=== PATIENT | female | born 1955 | race Caucasian/White ===

== ENCOUNTER 2016-09-01 15:12 | Emergency (ER) | payer MEDICARE, OTHER ==
--- NOTE | ~2016-09-01 | CR72 ---
[facility] A Service of [facility] & [facility] / [facility] RADIOLOGY TEXT RESULTS PATIENT: KENDELL SCHNEIDER LOCATION: [facility] : 53 UNIT #: [id number] AGE: [address]: Meredith Hartley MD SEX: F ORDER DR: [id number] [facility] [address] [place], [place] [address] [id number] MR#: [id number] #: [id number] NAME: KENDELL SCHNEIDER : 1955 SEX: F STUDY DATE/TIME: 09/01/2016 13:22 UNIT: [facility] ROOM: STUDY DESCRIPTION: CR Chest Single View Portable Attending Physician: Meredith Hartley M.D. Ordering Physician: Meredith Hartley M.D. Primary Care Physician: Dahiana Perez MEDICAL IMAGING REPORT This report is preliminary unless electronic signature is present EXAM Chest portable, 09/01/2016 1322 hours HISTORY 61-year-old woman with 4-day history of shortness of air, hypertension. COMPARISON 06/21/2016 FINDINGS Portable upright chest demonstrates normal heart size with mildly tortuous aorta, unchanged. There is mild pulmonary venous distension without definite interstitial edema. Vascular prominence has increased from 06/21/2016. No effusions. IMPRESSION There is mild pulmonary venous distension and vascular increase since 06/21/2016 without definite interstitial edema, pneumonia or effusion. Dictated by... Thu Neri M.D. THIS IS AN ELECTRONICALLY VERIFIED REPORT Thu Neri M.D. at 09/02/2016 9:26 AM CHARI/obed TD: 09/01/2016 20:44 JOB #: [id number] MEDICAL IMAGING REPORT COPY
--- NOTE | ~2016-09-01 | EKG ---
PATIENT: KENDELL SCHNEIDER UNIT #: [id number] Ventricular Rate: 66 BPM Atrial Rate: 66 BPM P-R Interval: 174 ms QRS Duration: 80 ms Q-T Interval: 448 ms QTC Calculation(Bezet): 469 ms P Booker: 71 degrees Calculated R Booker: 9 degrees Calculated T Booker: 76 degrees Diagnosis Line: Normal sinus rhythm Diagnosis Line: Normal ECG Diagnosis Line: When compared with ECG of 22-JUN-2016 05:36, Diagnosis Line: No significant change was found Diagnosis Line: Confirmed by ROLAND SHAW MD ([id number]) on 09/01/2016 Diagnosis Line: 7:33:21 PM INTERPRETING MD: COLIN CLINE
[2016-09-01 13:09] LABS: BASOPHIL# 0.1 X10e3 (0-0.3); BASOPHIL% 0.7 % (0-2.5); EOSINOPHIL# 0.3 X10e3 (0-0.7); EOSINOPHIL% 3.4 % (0.0-7.0); HEMATOCRIT 28.4 % (35.0-45.0); LYMPHOCYTE# 1.9 X10e3 (1.0-3.5); LYMPHOCYTE% 19.6 % (17.0-45.0); MEAN CELL VOLUME 86.2 FL (83-96); MEAN CORPUSCULAR HEMOGLOBIN 27.4 PG (28-34); MEAN CORPUSCULAR HGB CONC 31.8 g/dL (30-36); MEAN PLATELET VOLUME 9.5 FL (6.5-11.5); MONOCYTE# 0.7 X10e3 (0-1.0); MONOCYTE% 7.5 % (3.0-12.0); NEUTROPHIL# 6.6 X10e3 (1.5-7.1); NEUTROPHIL% 68.8 % (40-75); PLATELET COUNT 201 X10e3 (140-420); RED CELL DISTRIBUTION WIDTH 16.6 % (11.0-15.5); WHITE BLOOD COUNT 9.6 X10e3 (4.0-10.5)
[2016-09-01 13:10] LABS: DIFF IND NO
[2016-09-01 13:32] LABS: ALBUMIN SERUM 3.6 g/dL (3.5-5.0); ALKALINE PHOSPHATASE 89 U/L (32-92); ALT (SGPT) 17 U/L (10-40); AST (SGOT) 18 U/L (10-42); BILIRUBIN, DIRECT 0.1 mg/dL (0.0-0.2); BILIRUBIN,INDIRECT 0.3 mg/dL (0.0-0.9); BILIRUBIN,TOTAL 0.4 mg/dL (0.2-2.0); BLOOD UREA NITROGEN 13 mg/dL (9-23); BUN/CREATININE RATIO 21.66; CALCIUM SERUM 8.6 mg/dL (8.4-10.2); CARBON DIOXIDE 34 mmol/L (22-31); CHLORIDE 100 mmol/L (100-111); CREATININE SERUM 0.6 mg/dL (0.6-1.4); GLOM FILT RATE Estimated ABOVE60 mL/min (>60); GLUCOSE FASTING 85 mg/dL (70-110); POTASSIUM 3.8 mmol/L (3.5-5.1); PROTEIN TOTAL SERUM 6.7 g/dL (6.0-8.3); SODIUM 140 mmol/L (135-145)
[2016-09-01 13:36] LABS: POC - CKMB 1.1 ng/mL (0.0-7.9); POC - TROPONIN <0.05 ng/mL (<=0.05)
[~2016-09-01 15:12] MED LIST: ACETAMINOPHEN PO; ADVAIR 100-501 EAC1; ADVAIR 100-501 EAC1 IH; ADVAIR 2501 DISK W/D; ADVAIR 2501 DISK W/D PO; ADVAIR 500-501 EACH; ADVAIR 500-501 EACH IH; ADVAIR 500-501 EACH INH; ADVAIR 5001 DISK W/D PO; ALB/IPRATROPIUM/1 E1 INH; ALBUTEROL 0.5ML; ALBUTEROL 0.5ML INH; ALBUTEROL MININEB NEB; ALBUTEROL0.83 MG/ML; ALBUTEROL0.83 MG/ML INH; ALBUTEROL17 GM; ALBUTEROL17 GM INH; ALBUTEROL17 GM NEB; ALBUTEROL2.5 MG/0.5 INH; AMAZING BUTT CREAM EXT; AMAZING BUTT CREAM TOP; AMAZING BUTT CREAM TP; AMLODIPINE BESYL5 MG; AMLODIPINE BESYL5 MG PO; AMOXICILLIN875 MG PO; ANEXSIA 5/325 M1 TA1 PO; ANTI-DIARRHEAL2 M1; ANTI-DIARRHEAL2 M1 PO; ANTIDIARRHEAL2 MG PO; ANUSOL-HC CREAM30 G1; ASPIRIN81 M2 PO; ATIVAN PO; ATROVENT HFA12.9 G1 INH; ATROVENT15 ML INH; AUGMENTIN PO; AZITHROMYCIN250 MG PO; BACTROBAN22 GM TP; BENTYL10 MG PO; BENTYL20 MG; BENTYL20 MG PO; BENZONATATE; BENZONATATE PO; BUMEX2 MG PO; BUPROPION HCL150 M1; BUPROPION HCL150 M2 PO; CARBATROL200 MG PO; CARDURA2 MG PO; CEFDINIR300 MG PO; CEPHALEXIN500 M1 PO; CLARITIN10 M2 PO; CLOBETASOL 0.0560 GM TOP; COMBIVENT U/D3 M1 INH; CYMBALTA30 M1 PO; DALIRESP500 MCG PO; DICYCLOMINE HCL10 MG PO; DICYCLOMINE HCL20 MG PO; DOCUSATE SODIU100 MG PO; DOXYCYCLINE HY100 M1 PO; DUONEB 2.5-0.5 M3 ML NEB; FLEXERIL PO; FUROSEMIDE40 MG PO; GABAPENTIN300 M2 PO; GABAPENTIN600 MG PO; GABAPENTIN800 MG PO; GAS-X125 M1 PO; GUAIFENESIN LA600 M1 PO; GUAIFENESIN600 MG PO; HYCODAN60 ML 5MG/ PO; HYDRALAZINE HCL25 MG PO; HYDROCODON-ACE1 EAC1 PO; HYDROCODON-ACE1 EAC7 PO; HYDROCODON-ACE1 EACH PO; HYDROCODONE/APA1 T16 PO; IBUPROFEN PO; IBUPROFEN200 M1 PO; IBUPROFEN600 MG PO; IMITREX25 MG PO; IMODIUM A-D2 M1 PO; IMODIUM2 MG PO; KCL PO; KEFLEX PO; LASIX PO; LASIX20 MG PO; LEVAQUIN PO; LISINOPRIL10 MG PO; LISINOPRIL20 MG PO; LISINOPRIL5 MG PO; LORAZEPAM1 MG; LORAZEPAM1 MG PO; LORTAB 10-5001 EACH PO; LORTAB 5/500 TA1 TA1 PO; LORTAB 7.5-5001 TAB PO; MAGNESIUM400 MG PO; MEDROL DOSEPAK4 MG PO; MEDROL PO; MEDROL4 MG/DOSE-; METOPROLOL SUCC25 MG PO; MOBIC PO; MOTRIN400 MG PO; MUCINEX D ER T1 EACH; MYLANTA GAS80 MG PO; NEURONTIN PO; NEURONTIN600 MG PO; NEURONTIN800 MG PO; NEXIUM PO; NILSTAT; NILSTAT PO; NORCO 5/325 TAB1 TAB PO; NORVASC PO; NORVASC10 MG PO; O2; ORUDIS75 M1 PO; OXCARBAZEPINE150 M1 PO; OXYGEN; PHENERGAN DM1 ML PO; PHENERGAN PO; PHENERGAN W/CO120 ML PO; PHENERGAN25 M1 PO; PHENERGAN25 MG PO; PRAVACHOL PO; PRAVASTATIN SOD20 MG PO; PRAVASTATIN SOD40 MG; PRAVASTATIN SOD40 MG PO; PREDNISONE PO; PREDNISONE10 MG; PREDNISONE10 MG PO; PREDNISONE10 MG/DOSE PO; PREDNISONE50 MG PO; PRILOSEC PO; PRINIVIL20 M1; PROMETHAZINE HC25 MG; PROMETHAZINE HC25 MG PO; PROVENTIL INH; ROBITUSSIN A-C S5 ML PO; ROBITUSSIN A-C-S1 ML PO; ROBITUSSIN COU118 M1 PO; ROBITUSSIN-DM118 ML PO; SKELAXIN PO; SPIRIVA18 MCG INH; SYMBICORT INH; TEGRETOL; TEGRETOL PO; TEGRETOL XR400 MG PO; TEGRETOL-XR200 MG PO; TOPROL XL PO; TRAMADOL HCL50 M2 PO; TRIAMCINOLONE A15 G2 EXT; TRIAMCINOLONE AC1 GM; TRIAMTERENE-HC1 EAC1 PO; TUSSI-ORGANIDI118 M1 PO; TUSSIONEX PENN473 ML PO; TUSSIONEX PENN480 ML PO; VAGINAL CREAM1 EACH PV; VENTOLIN5 MG/ML INH; VIBRAMYCIN100 M1 PO; VICODIN PO; WALKER; WELLBUTRIN PO; WELLBUTRIN SR150 MG PO; WELLBUTRIN100 MG PO; Z-PACK; ZANTAC PO; ZITHROMAX PO; ZITHROMAX1 G/PKT PO; ZOLOFT100 MG PO; ZOLOFT50 MG PO; [UNRECOGNIZED DRUG - REMARK]; [UNRECOGNIZED DRUG - REMARK] OP
[2016-09-01 15:55] LABS: POC - CKMB 1.2 ng/mL (0.0-7.9); POC - TROPONIN <0.05 ng/mL (<=0.05)
[2016-11-30] MEDS ORDERED: NILSTAT (00:01)
[2016-11-30] MEDS ORDERED: HYDROCODON-ACE1 EAC9 PO (00:02)
[2016-11-30] MEDS ORDERED: GABAPENTIN800 MG (00:03)
[2016-11-30] MEDS ORDERED: MONTELUKAST SOD10 MG PO (00:04)
[2016-11-30] MEDS ORDERED: BUSPAR5 M1 PO (00:04)
[2017-01-22] MEDS ORDERED: ZOFRAN PO (16:05)
== END 2016-09-01 15:59 | disposition home or self-care (01) ==
LOC: CED 15:12
PROVIDERS: Emergency Medicine
DX: J44.1 Chronic obstructive pulmonary disease with (acute) exacerbation (principal); I11.0 Hypertensive heart disease with heart failure; I50.9 Heart failure, unspecified; K21.9 Gastro-esophageal reflux disease without esophagitis; F41.9 Anxiety disorder, unspecified; F32.9 Major depressive disorder, single episode, unspecified; Z90.49 Acquired absence of other specified parts of digestive tract; E78.5 Hyperlipidemia, unspecified
CPT/HCPCS: 36415; 71010; 80048; 80076; 82553; 83880; 84484; 85025; 93005; 94640; 96374; 99284; J2930

== ENCOUNTER 2016-11-30 13:48 | Inpatient (IN) | payer MEDICARE, OTHER ==
--- NOTE | ~2016-11-30 | BMI ---
[facility] Nutrition Therapy DATE: 12/01/16 Patient: KENDELL SCHNEIDER Physician: MELISSA Address: [address] [place] [address] Room/Bed: [address] [place] [address], Zip: [place] [address] Admit Date: 11/30/16 Date of : 53 Height: 5 4 Weight: 250 113.39 HIGH BMI NOTE: DX: 61 Y.O. FEMALE ADMITTED FOR PNUEMONIA. ANTHROPOMETRICS: 5'4", WT: 249# (113 KG), BMI 42 DIET: REGULAR DIET INTERVENTION: 1. REGULAR DIET RECOMMENDATIONS: 1. ONCE MEDICALLY FEASIBLE, ADVANCE DIET TO HEALTHY HEART DIET IN ORDER TO PROMOTE GRADUAL WEIGHT LOSS TOWARD A HEALTHY BMI (19.0-25.0) OR +/-10% IBW. RD WILL F/U PER PROTOCOL. Respectfully, TEMI MENDEZ, DIRECTOR OF PUBLICATIONS ALLI ADAMES MS, RD, LD Food and Nutritional Services [facility] cc: client file
--- NOTE | ~2016-11-30 | DS ---
Unit #: [id number] #: [id number] Patient: KENDELL SCHNEIDER [id number] [address] [address] [id number] I MR#: [id number] NAME: KENDELL SCHNEIDER ROOM: 230 Age: 61 Sex: F Admission Date: 11/30/2016 : 1955 Discharge Date: 12/03/2016 Attending Physician: Leonides Wilson M.D. Primary Care Physician: Dahiana Borges [employer]n [employer] DISCHARGE SUMMARY DISCHARGE DIAGNOSES 1. Fnpgk-ke-piaxbgd hypoxemic respiratory failure. 2. Chronic obstructive pulmonary disease exacerbation. 3. Community acquired pneumonia. 4. Hypertension. 5. Morbid obesity. 6. Chronic back pain. 7. Anemia. DISCHARGE MEDICATIONS 1. Albuterol sulfate inhaler or nebulizer q.4 h. p.r.n. 2. Advair 500/50 one inhalation b.i.d. 3. Tegretol 200 mg b.i.d. 4. Gabapentin 800 mg q.6 h. 5. Duloxetine 30 mg daily. 6. Nystatin Simep-t-Hdxibyb 5 cc q.i.d. p.r.n. 7. Phenergan 25 mg q.8 h. p.r.n. nausea. 8. BuSpar 5 mg p.o. b.i.d. 9. Norvasc 5 mg daily. 10. Metoprolol 25 mg daily. 11. Colace 100 mg daily. 12. Bumex 2 mg p.o. daily. 13. Pravastatin 40 mg at nighttime. 14. Hydralazine 25 mg t.i.d. 15. Singulair 10 mg daily. 16. [place]iboll 7.5/325 mg daily. 17. Nexium 40 mg daily. 18. Zithromax 500 mg daily for 5 days. 19. Prednisone 40 mg for 3 days, decreased by 10 mg every 3 days until off. 20. She is to continue on home oxygen. DIET No concentrated sweets diet. HOSPITAL COURSE The patient was admitted with exacerbation of chronic obstructive pulmonary disease and community acquired pneumonia. Chest x-ray was assessed today, subtle infiltrate in the right mid lung field. Her white blood cell count was 14,000. Hemoglobin was 8.4. Platelet count was normal. The patient was noted to be wheezing. She was in some respiratory distress. She was seen in the emergency room and we were called to admit the patient. She was admitted with the diagnosis of community acquired pneumonia, rmljc-lc-fsqapfw hypoxemic respiratory Unit #: [id number] #: [id number] Patient: KENDELL SCHNEIDER failure and exacerbation of chronic obstructive pulmonary disease. She was also noted to be anemic. She had some history of hyperglycemia in the past. She was admitted and placed on supplemental oxygen. She was treated with inhaled bronchodilators, IV Solu-Medrol, covered with antibiotics. As noted, chest x-ray showed subtle infiltrate in the right mid lung field. A chest CT scan was done, which confirmed ground glass infiltrate with interstitial change in a small area of ovoid airspace density in the inferior aspect of the right upper lobe. There were emphysematous changes bilaterally linear atelectatic scar at the right lung base. She was treated with Rocephin and Zithromax. She was treated with inhaled bronchodilators, IV Solu-Medrol with improvement with clearing of wheezing and improvement in baseline dyspnea. Her steroids have been weaned. She has received four doses of Rocephin and we will discharge her on oral Zithromax. She did have a procalcitonin drawn and it was less than 0.05. She was noted to be anemic. Hemoccult stool was negative. She should have followup with her family physician regarding her anemia. She will follow up in our office in two weeks for reevaluation of respiratory status. She will need a follow-up chest CT to ensure clearing of the right upper lobe ground glass infiltrate in four months. She is to continue to wear her home oxygen. Further recommendations pending this. Dictated by... Cameron Villagran/manuel TD: 12/04/2016 08:00 JOB #: [id number] DISCHARGE SUMMARY Page 1 of 1 X Leonides Wilson MD DISCHARGE SUMMARY
--- NOTE | ~2016-11-30 | HP ---
Unit #: [id number] #: [id number] Patient: KENDELL SCHNEIDER [id number] [address] [place], [place] [address] [id number] MR#: [id number] NAME: KENDELL SCHNEIDER ROOM: 230 Age: 61 Sex: F Admission Date: 11/30/2016 : 1955 Attending Physician: Leonides Wilson M.D. Primary Care Physician: Dahiana Perez HISTORY AND PHYSICAL Ms. Schneider is a 61-year-old white female who we have seen in the past with a history of COPD and chronic respiratory failure who presents with a three day history of increased shortness of breath, cough, productive or sputum and possibly some chills. She is noted to be wheezing. She did have some pain in chest with coughing. She had no documented fever and did have chills and had to use six blankets the other night. She is a reformed smoker x10 years. She does wear home oxygen three L. She denies any hemoptysis. PAST MEDICAL HISTORY Significant for COPD with chronic respiratory failure maintaining an O2 at 3 L, history of hypertension, anxiety, depression and gastroesophageal reflux, degenerative joint disease, chronic back pain, some history of CHF with history of catheterization revealing normal ejection fraction and no significant coronary artery disease. Also has a history of trigeminal neuralgia. PAST SURGICAL HISTORY Bilateral tubal ligation, right wrist surgery, umbilical hernia repair, right ear surgery, laparoscopic cholecystectomy. FAMILY HISTORY Positive for heart disease. SOCIAL HISTORY Reformed smoker x10 years. and lives with . Mother just . ALLERGIES None known. HOME MEDICATIONS Metoprolol, pravastatin, Nexium, hydralazine, Bumex, duloxetine, Norvasc, Tegretol, Phenergan, Colace, Flovent Diskus, albuterol, Ventolin, Advair 500/50, nystatin, [place] 7.5/325, Neurontin, BuSpar, Singulair. REVIEW OF SYSTEMS CONSTITUTIONAL: Has had some chills. No definite fevers. HEENT: No rhinorrhea, nasal congestion. PULMONARY: As noted. CARDIAC: No chest pain or palpitations. GI: No nausea, vomiting, diarrhea. : No hematuria or dysuria. ENDOCRINE: No polyuria or polydipsia. Unit #: [id number] #: [id number] Patient: KENDELL SCHNEIDER HEMATOLOGIC: No easy bruising or bleeding. SKIN: No rash. NEUROLOGIC: No new weakness or numbness. PSYCHIATRIC: Does have a history of anxiety or depression. PHYSICAL EXAMINATION VITAL SIGNS: Blood pressure is 135/74, pulse 61, respiratory rate 16 and afebrile. HEENT: Normocephalic and atraumatic. Pupils equal, round, reactive. Sclerae are nonicteric. Nasal passage is patent. Posterior pharynx clear, edentulous. Mallampati 3-4. NECK: Supple. Trachea midline. No cervical, supraclavicular lymphadenopathy. LUNGS: Lungs reveal mild expiratory wheeze bilaterally. Decreased breath sounds. CARDIAC: Regular rate and rhythm, could not appreciate murmur, rub, or gallop. ABDOMEN: Nontender. Bowel sounds present. No hepatosplenomegaly. EXTREMITIES: Without clubbing, cyanosis, or edema. Pulses 2+. NEUROLOGIC: Awake, alert and oriented x3. Cranial nerves are intact. Muscle strength symmetric bilaterally. Affect calm. SKIN: Warm and dry. DIAGNOSTIC STUDIES LABORATORY STUDIES: Reviewed. BMP is unremarkable, glucose 117. BNP is 65. Cardiac enzymes negative. White blood cell count 14,000, hematocrit 27.1, platelet count normal. Previous hemoglobin on 09/01/2016 was 28 and on 06/21/2016 was 33.3. CARDIOLOGY STUDIES: EKG shows normal sinus rhythm. IMPRESSION 1. Acute and chronic hypoxemic respiratory failure. 2. COPD exacerbation. 3. Possible community acquired pneumonia with vague right mid lung field infiltrate on chest x-ray. 4. History of CHF, compensated. 5. Hypertension. 6. Obesity. 7. Chronic back pain. PLANS Will treat with inhaled bronchodilators, IV Solu-Medrol, community acquired pneumonia with Rocephin and Zithromax. In order to prove that there is actually a pneumonia, will obtain chest CT scan without contrast and procalcitonin. Apparently also she has a history of sleep study done and it tells me that the sleep study was negative and will try to review those results. Will make further recommendations pending this. Will place on DVT prophylaxis and sliding scale insulin for mild hyperglycemia, which is suspected to worsen with steroid treatment. Dictated by Leonides Wilson M.D. LPM/jimmie Unit #: [id number] #: [id number] Patient: KENDELL SCHNEIDER TD: 12/01/2016 11:32 JOB #: [id number] CC: [facility], [facility], [facility]. HISTORY AND PHYSICAL Page 1 of 1 X Leonides Wilson MD X HISTORY AND PHYSICAL
--- NOTE | ~2016-11-30 | CR72 ---
[facility] A Service of [facility] & [facility] / [facility] RADIOLOGY TEXT RESULTS PATIENT: KENDELL SCHNEIDER LOCATION: A 230-01 : 53 UNIT #: [id number] AGE: [address]: Leonides Wilson MD SEX: F ORDER DR: [id number] [facility] [address] [place], [place] [address] [id number] MR#: [id number] #: [id number] NAME: KENDELL SCHNEIDER : 1955 SEX: F STUDY DATE/TIME: 11/30/2016 15:03 UNIT: [facility] ROOM: 230 STUDY DESCRIPTION: CR Chest Single View Portable Attending Physician: Leonides Wilson M.D. Ordering Physician: Ronald Smith M.D. Primary Care Physician: Dahiana Perez MEDICAL IMAGING REPORT This report is preliminary unless electronic signature is present EXAM Portable chest HISTORY Shortness of air and chest pain for 3 days. COPD. FINDINGS Patchy subsegmental infiltrate in the inferior right upper lobe and minimal fluid in the minor fissure are new compared to 09/01/16. Although nonspecific, this could be due to subsegmental pneumonia. Remainder of the lungs are clear. Cardiac and mediastinal contours are normal. Dictated by... Skyler Dumas M.D. THIS IS AN ELECTRONICALLY VERIFIED REPORT Skyler Dumas M.D. at 12/01/2016 3:01 PM DFL/psc TD: 12/01/2016 00:06 JOB #: [id number] MEDICAL IMAGING REPORT Page 1 of 1 COPY
--- NOTE | ~2016-11-30 | CT57 ---
[facility] A Service of [facility] & [facility] RADIOLOGY TEXT RESULTS PATIENT: KENDELL SCHNEIDER LOCATION: C2A 230-01 : 53 UNIT #: [id number] AGE: [address]: Leonides Wilson MD SEX: F ORDER DR: [id number] [facility] [address] [place], [place] [address] [id number] MR#: [id number] Acc #: [id number] NAME: KENDELL SCHNEIDER : 1955 SEX: F STUDY DATE/TIME: 12/01/2016 11:53 UNIT: C2A ROOM: 230 STUDY DESCRIPTION: CT Chest Wo Cont Attending Physician: Leonides Wilson M.D. Ordering Physician: Eulalio Wilson Primary Care Physician: Dahiana Perez MEDICAL IMAGING REPORT This report is preliminary unless electronic signature is present EXAM CT chest without contrast, 12/01/2016 11:53 hours HISTORY 61-year-old with shortness of air and cough since 11/27/2016, abnormal chest x-ray 11/30/2016 with probable right pneumonia. For further evaluation. COMPARISON Chest x-ray 11/30/2016, 09/01/[address] 11/26/2014. TECHNIQUE Helical noncontrasted images were obtained from the thoracic inlet through the adrenal glands. Sagittal and coronal reconstructions were performed. Total exam DLP 719 mGy-cm. This CT exam was performed with one or more of the following radiation dose reduction techniques: automatic exposure control, adjustment of mA and/or kV according to patient size, and iterative reconstruction. FINDINGS Images through the thoracic inlet demonstrate no thyroid lesion or adenopathy. Images through the chest demonstrate no pathologic mediastinal, hilar or axillary adenopathy. There are stable benign calcified left hilar nodes. The aorta, cardiac chambers, pericardium and esophagus are normal. The lungs demonstrate underlying emphysema both paraseptal and centrilobular. There is vague density in the right upper lobe with both airspace and interstitial change new from CT chest 11/26/2014 likely corresponding to the density seen on chest film yesterday. This is nonspecific. Acute infection is favored. There is linear to band-like STS. [facility] A Service of [facility] & [facility] RADIOLOGY TEXT RESULTS PATIENT: KENDELL SCHNEIDER LOCATION: C2A 230-01 : 53 UNIT #: [id number] AGE: [address]: Leonides Wilson MD SEX: F ORDER DR: density in the right lower lobe, likely atelectasis or scar, not well seen on portable chest yesterday but new from CT chest 11/26/2014. There is some linear density in the left lower lobe but the left lung is essentially clear of acute densities. There is no obstructing lesion. No pleural fluid. Limited views through the upper abdomen are negative. IMPRESSION 1. There is underlying emphysematous change with new ground-glass, interstitial change with a small area of ovoid airspace density in the inferior aspect of the right upper lobe likely corresponding to the new density seen on chest film yesterday. Findings most likely represent pneumonia. These are not seen on CT chest 11/26/2014. There is no associated adenopathy or pleural fluid. Followup chest radiographs to complete resolution is recommended. If this fails to rapidly respond to antibiotic therapy, suggest followup short interval chest CT. 2. Minimal linear atelectasis or scar at the right lung base. 3. Limited views through the upper abdomen are negative. Dictated by... Thu Neri M.D. THIS IS AN ELECTRONICALLY VERIFIED REPORT Thu Neri M.D. at 12/02/2016 2:31 PM Ophelia TD: 12/01/2016 13:21 JOB #: [id number] MEDICAL IMAGING REPORT Page 1 of 1 COPY
--- NOTE | ~2016-11-30 | EKG ---
PATIENT: KENDELL SCHNEIDER UNIT #: [id number] Ventricular Rate: 76 BPM Atrial Rate: 76 BPM P-R Interval: 166 ms QRS Duration: 86 ms Q-T Interval: 382 ms QTC Calculation(Bezet): 429 ms P Beaver: 49 degrees Calculated R Beaver: -18 degrees Calculated T Beaver: 73 degrees Diagnosis Line: Normal sinus rhythm Diagnosis Line: Normal ECG Diagnosis Line: When compared with ECG of 01-SEP-2016 12:47, Diagnosis Line: No significant change was found Diagnosis Line: Confirmed by SHANON MARIE MD ([id number]) on Diagnosis Line: 11/30/2016 10:21:37 PM INTERPRETING MD: IRINA
[~2016-11-30 13:48] MED LIST changes: +BUSPAR5 M1 PO; +GABAPENTIN800 MG; +HYDROCODON-ACE1 EAC9 PO; +MONTELUKAST SOD10 MG PO
[2016-11-30 14:36] LABS: POC - CKMB <1.0 ng/mL (0.0-7.9); POC - TROPONIN <0.05 ng/mL (<=0.05)
[2016-11-30 14:59] LABS: BASOPHIL# 0.1 X10e3 (0-0.3); BASOPHIL% 0.5 % (0-2.5); EOSINOPHIL# 0.4 X10e3 (0-0.7); EOSINOPHIL% 2.8 % (0.0-7.0); HEMATOCRIT 27.1 % (35.0-45.0); HEMOGLOBIN 8.4 gm/dL (12.0-16.0); LYMPHOCYTE# 1.4 X10e3 (1.0-3.5); LYMPHOCYTE% 10.1 % (17.0-45.0); MEAN CELL VOLUME 84.3 FL (83-96); MEAN CORPUSCULAR HGB CONC 30.9 g/dL (30-36); MEAN PLATELET VOLUME 9.9 FL (6.5-11.5); MONOCYTE# 1.1 X10e3 (0-1.0); MONOCYTE% 7.6 % (3.0-12.0); PLATELET COUNT 236 X10e3 (140-420); RED BLOOD COUNT 3.22 X10e (3.90-5.30); RED CELL DISTRIBUTION WIDTH 16.7 % (11.0-15.5)
[2016-11-30 15:04] LABS: DIFF IND NO
[2016-11-30 15:19] LABS: ALBUMIN SERUM 3.7 g/dL (3.5-5.0); BILIRUBIN, DIRECT 0.1 mg/dL (0.0-0.2); BILIRUBIN,INDIRECT 0.5 mg/dL (0.0-0.9); BILIRUBIN,TOTAL 0.6 mg/dL (0.2-2.0); BUN/CREATININE RATIO 11.42; CALCIUM SERUM 8.5 mg/dL (8.4-10.2); CREATININE SERUM 0.7 mg/dL (0.6-1.4); GLOM FILT RATE Estimated 92.9 mL/min (>60); POTASSIUM 4.1 mmol/L (3.5-5.1)
[2016-11-30] MEDS ORDERED: METOPROLOL SUCC25 MG PO (23:38)
[2016-11-30] MEDS ORDERED: NEXIUM PO (23:39)
[2016-11-30] MEDS ORDERED: PRAVASTATIN SOD40 MG PO (23:39)
[2016-11-30] MEDS ORDERED: HYDRALAZINE HCL25 MG PO (23:40)
[2016-11-30] MEDS ORDERED: BUMEX2 MG PO (23:41)
[2016-11-30] MEDS ORDERED: DULOXETINE HCL30 MG PO (23:45)
[2016-11-30] MEDS ORDERED: NORVASC PO (23:46)
[2016-11-30] MEDS ORDERED: TEGRETOL PO (23:48)
[2016-11-30] MEDS ORDERED: PHENERGAN PO (23:49)
[2016-11-30] MEDS ORDERED: DOCUSATE SODIU100 MG PO (23:50)
[2016-11-30] MEDS ORDERED: FLOVENT DISKUS50 MCG (23:53)
[2016-11-30] MEDS ORDERED: ALBUTEROL2.5 MG/3 M (23:55)
[2016-11-30] MEDS ORDERED: ALBUTEROL17 GM INH (23:56)
[2016-11-30] MEDS ORDERED: ADVAIR 500-501 EACH INH (23:59)
[2016-12-02 06:22] LABS: HEMATOCRIT 25.5 % (35.0-45.0); HEMOGLOBIN 7.9 gm/dL (12.0-16.0); MEAN CELL VOLUME 83.8 FL (83-96); MEAN CORPUSCULAR HEMOGLOBIN 25.8 PG (28-34); MEAN CORPUSCULAR HGB CONC 30.8 g/dL (30-36); MEAN PLATELET VOLUME 9.7 FL (6.5-11.5); RED BLOOD COUNT 3.05 X10e (3.90-5.30); RED CELL DISTRIBUTION WIDTH 16.9 % (11.0-15.5); WHITE BLOOD COUNT 17.8 X10e3 (4.0-10.5)
[2016-12-02 06:50] LABS: BUN/CREATININE RATIO 27.14; CALCIUM SERUM 8.8 mg/dL (8.4-10.2); CREATININE SERUM 0.7 mg/dL (0.6-1.4); GLOM FILT RATE Estimated 92.9 mL/min (>60); POTASSIUM 3.9 mmol/L (3.5-5.1)
[2016-12-03] MEDS ORDERED: PROAIR HFA8.5 GM INH (14:59)
[2016-12-03] MEDS ORDERED: ZITHROMAX500 MG PO (15:04)
[2016-12-03] MEDS ORDERED: PREDNISONE10 M1 (15:05)
[2017-01-22] MEDS ORDERED: ZOFRAN PO (16:05)
== END 2016-12-03 15:26 | disposition home or self-care (01) | DRG 189 ==
LOC: CED 13:48 → C2A 16:56 → CEDOF 16:56 → C2A 17:43 → CED 17:43 → C2A 18:42 → CEDOF 18:42 → C2A 12-03 15:26
PROVIDERS: Emergency Medicine; Internal Medicine
DX: J96.21 Acute and chronic respiratory failure with hypoxia (principal); J18.9 Pneumonia, unspecified organism; J44.0 Chronic obstructive pulmonary disease with (acute) lower respiratory infection; E66.01 Morbid (severe) obesity due to excess calories; J44.1 Chronic obstructive pulmonary disease with (acute) exacerbation; I10 Essential (primary) hypertension; M54.9 Dorsalgia, unspecified; G89.29 Other chronic pain; D64.9 Anemia, unspecified; Z87.891 Personal history of nicotine dependence
CPT/HCPCS: 36415; 71010; 71250; 80048; 80076; 82274; 82308; 82553; 82947; 83880; 84484; 85025; 85027; 87040; 93005; 94640; 94664; 94760; 96374; 99285; J0456; J0696; J1650; J1815; J2920; J2930

== ENCOUNTER 2016-12-16 16:01 | Observation (INO) | payer MEDICARE, OTHER ==
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
--- NOTE | ~2016-12-16 | DS ---
Unit #: [id number] #: [id number] Patient: KENDELL SCHNEIDER [id number] [address] [place], [place] [address] [id number] I MR#: [id number] NAME: KENDELL SCHNEIDER ROOM: 567 Age: 61 Sex: F Admission Date: 12/16/2016 : 1955 Discharge Date: 12/18/2016 Attending Physician: Leonides Wilson M.D. Primary Care Physician: Dahiana Borges Aprn Chris DISCHARGE SUMMARY DISCHARGE DIAGNOSES 1. Right sided chest pain, likely musculoskeletal. 2. Chronic obstructive pulmonary disease with chronic respiratory failure, maintained on home O2. 3. Recent community-acquired pneumonia right mid lung field, resolved. 4. Hypertension. 5. Morbid obesity. 6. Possible obstructive sleep apnea. 7. Hemoccult negative anemia: Outpatient workup recommended through [facility]. HOSPITAL COURSE 61-year-old white female recently discharged from the hospital on December 03 after treatment for community-acquired pneumonia. She presented with right sided, somewhat pleuritic in chest pain, also with point tenderness to the anterior ribcage in that area. She was admitted to rule out ischemic heart disease. A chest x-ray showed resolution of the infiltrate. CT scan PE protocol showed no evidence of pulmonary embolus or/and resolution of her pneumonia. She was seen by Dr. Strickland. Cardiac enzymes were negative. Her pain resolved. It was not felt this represented cardiac pain. She will be discharged home to follow up with Dr. Martin Nino on February 05 at 3:30 from a cardiac point of view. She will follow up in my office per her regular visit. She does not require a repeat CT scan as her right sided community-acquired pneumonia has resolved. She was noted to be slightly hypotensive and Dr. Strickland did adjust her home medicines for that. She was also given a prescription for potassium. DISCHARGE MEDICATIONS Her discharge medicines will include: 1. Albuterol inhaler or nebulizer every four hours as needed. 2. Advair 500/50, one inhalation b.i.d. 3. Advair two puffs q.i.d. 4. Tegretol 200 mg b.i.d. 5. Gabapentin as per at home q.i.d. 6. Trileptal 200 mg b.i.d. as at home. 7. Duloxetine 30 mg daily. 8. Loperamide as needed for diarrhea. 9. Phenergan 25 q.8 hours as needed for nausea. 10. Bentyl 20 mg before meals. 11. BuSpar 5 b.i.d. 12. Norvasc has been discontinued. 13. Metoprolol has been changed to 25 mg q.12 hours as opposed to 25 mg daily. Unit #: [id number] #: [id number] Patient: KENDELL SCHNEIDER 14. Colace 100 mg daily. 15. Imitrex 25 mg daily as needed for headaches. 16. Bumex 1 mg daily. 17. Pravastatin 40 mg q. h.s. 18. Hydralazine 25 mg b.i.d., that is decreased from three times a day. 19. Singulair 10 mg daily. 20. Aspirin 81 mg daily. 21. Hydrocodone 7.5/325, one q.i.d. as needed. 22. Nexium 40 mg p.o. daily. 23. Potassium 40 mEq daily. 24. Home O2 at prescribed level. Outpatient follow up for COPD. Pneumonia has resolved. Do not need followup CT. Would also re-evaluate obstructive sleep apnea. Dictated by... Leonides Wilson M.D. RAYMOND/rupert TD: 12/19/2016 08:24 JOB #: [id number] DISCHARGE SUMMARY Page 1 of 1 X Leonides Wilson MD X DISCHARGE SUMMARY
--- NOTE | ~2016-12-16 | CR132 ---
[facility] A Service of [facility] & [facility] RADIOLOGY TEXT RESULTS PATIENT: KENDELL SCHNEIDER LOCATION: [facility] 567-01 : [birth year] UNIT #: [id number] AGE: [address]: Leonides Wilson MD SEX: F ORDER DR: [id number] [facility] [address]. [place], [place] [address] [id number] I MR#: [id number] Acc #: [id number] NAME: KENDELL SCHNEIDER : 1955 SEX: F STUDY DATE/TIME: 12/16/2016 21:11 UNIT: [facility] ROOM: [facility] STUDY DESCRIPTION: CR Forearm 2 View Lt Attending Physician: Leonides Wilson M.D. Ordering Physician: Ramirez Campbell D.O. Primary Care Physician: Dahiana Perez MEDICAL IMAGING REPORT This report is preliminary unless electronic signature is present EXAM Two views of the left forearm. DATE 12/16/2016 HISTORY Left hand and forearm pain and swelling since 12/16/2016. No known injury. COMPARISON None. FINDINGS No fracture. No joint dislocation. No significant osteoarthritic changes are appreciated. No retained radiopaque foreign body is seen in the soft tissues. IMPRESSION 1. Normal 2 views of the left forearm. Dictated by... Ilene Montgomery M.D. THIS IS AN ELECTRONICALLY VERIFIED REPORT Ilene Montgomery M.D. at 12/17/2016 10:40 AM [facility]/obed TD: 12/17/2016 04:25 JOB #: [id number] MEDICAL IMAGING REPORT Page 1 of 1 COPY
--- NOTE | ~2016-12-16 | HP ---
Unit #: [id number] #: [id number] Patient: KENDELL SCHNEIDER [id number] [address] [place], [place] [address] [id number] I MR#: [id number] NAME: KENDELL SCHNEIDER ROOM: 567 Age: 61 Sex: F Admission Date: 12/16/2016 : 1955 Attending Physician: Leonides Wilson M.D. HISTORY AND PHYSICAL HISTORY OF PRESENT ILLNESS Ms. Schneider is a 61-year-old white female recently discharged from the hospital on December 03, 2016, after admission for acute on chronic hypoxemic respiratory failure and COPD exacerbation with right upper lobe community-acquired pneumonia. She was discharged on her routine inhalers, Zithromax, and a tapering dose of prednisone. Yesterday, she awakened with right-sided chest pain. She took a pain pill and it seemed to improve. She came to the emergency room, and we were called to admit the patient. CT scan of the chest was done which showed no evidence of pulmonary embolus. Bilateral emphysematous changes, and it also showed clearing of the right-sided infiltrate that had been present last admission. Cardiac enzymes have been negative. PAST MEDICAL HISTORY 1. Chronic obstructive pulmonary disease with chronic respiratory failure, maintained on home O2 at three liters. 2. Hypertension. 3. Anxiety and depression. 4. Gastroesophageal reflux. 5. Degenerative joint disease. 6. Chronic back pain. 7. Some history of CHF with history of catheterization revealing normal ejection fraction and no coronary artery disease apparently. 8. History of trigeminal neuralgia. PAST SURGICAL HISTORY 1. Bilateral Tubal ligation. 2. Right wrist surgery. 3. Umbilical hernia repair. 4. Right ear surgery. 5. Laparoscopic cholecystectomy. FAMILY HISTORY Heart disease. ALLERGIES None known. HOME MEDICATIONS 1. Metoprolol 25 mg daily. 2. Pravastatin 40 at bedtime. 3. Nexium 40 daily. 4. Hydralazine 25 t.i.d. 5. Bumex 2 daily. Unit #: [id number] #: [id number] Patient: KENDELL SCHNEIDER 6. Duloxetine 30 mg daily. 7. Norvasc 5 mg daily. 8. Tegretol 200 mg twice daily. 9. Phenergan 25 mg q.8. 10. Colace 100 mg b.i.d. 11. Albuterol q.4 hours as needed. 12. Advair 500/50 at 1 inhalation twice daily. 13. [place] 7.5/325 every 4 hours as needed. 14. Gabapentin 4 times daily. 15. BuSpar 5 mg twice daily. 16. Singulair 10 mg at bedtime. 17. Bentyl. 18. Trileptal 200 mg twice daily. 19. Imitrex 25 daily. 20. Loperamide 2 mg as needed. 21. Atrovent. REVIEW OF SYSTEMS CONSTITUTIONAL: No fevers or chills. HEENT: No rhinorrhea or nasal congestion. PULMONARY: As noted. CARDIAC: As noted. GENITOURINARY: No hematuria or dysuria. ENDOCRINE: No polyuria or polydipsia. HEMATOLOGIC: No easy bruising or bleeding. SKIN: No rash. GASTROINTESTINAL: Negative. PHYSICAL EXAMINATION GENERAL: A white female, obese, in no distress. VITAL SIGNS: Blood pressure is 128/76, pulse 63, respiratory rate 19, and afebrile. HEENT: Normocephalic and atraumatic. Pupils equal, round, AND reactive. Sclerae are nonicteric. Nasal passages patent. Posterior pharynx crowded. NECK: Supple. Trachea midline. No cervical or supraclavicular lymphadenopathy. LUNGS: Fairly clear with diminished breath sounds. CARDIAC: Regular rate and rhythm. I could not appreciate murmur, rub, or gallop. ABDOMEN: Nontender. Bowel sounds present. No hepatosplenomegaly. EXTREMITIES: Without clubbing or cyanosis. There is 1+ lower extremity edema. SKIN: Warm and dry. PSYCHIATRIC: Affect calm. DIAGNOSTIC STUDIES LABORATORY: Reviewed. BMP unremarkable. Glucose 145. Cardiac enzymes negative. White count 7400, hematocrit 28.4, and platelet count normal. IMPRESSION 1. Right side chest pain, rule out ischemic heart disease. No evidence of pulmonary emboli or pneumonia. 2. Chronic obstructive pulmonary disease with chronic respiratory failure maintained on home oxygen. 3. Hypertension. 4. Morbid obesity. 5. Possible obstructive sleep apnea. 6. Hemoccult-negative anemia in the past. Can plan outpatient workup. Unit #: [id number] #: [id number] Patient: KENDELL SCHNEIDER PLAN Rule out [place]. Follow up with [facility]. We are not the primary care physician of this patient. Will continue current pulmonary medicines. Will need to review old records to see if she has been evaluated for sleep apnea. Dictated by Leonides Wilson M.D. RAYMOND/robert TD: 12/17/2016 20:46 JOB #: [id number] HISTORY AND PHYSICAL Page 1 of 1 X Leonides Wilson MD X HISTORY AND PHYSICAL
--- NOTE | ~2016-12-16 | EKG ---
PATIENT: KENDELL SCHNEIDER UNIT #: [id number] Ventricular Rate: 71 BPM Atrial Rate: 71 BPM P-R Interval: 152 ms QRS Duration: 76 ms Q-T Interval: 408 ms QTC Calculation(Bezet): 443 ms P [place]: 25 degrees Calculated R [place]: -7 degrees Calculated T [place]: 32 degrees Diagnosis Line: Sinus rhythm Diagnosis Line: Nonspecific ST abnormality Diagnosis Line: Abnormal ECG Diagnosis Line: When compared with ECG of 30-NOV-2016 14:48, Diagnosis Line: ST-T abnormalities worse Diagnosis Line: Confirmed by SHANON MARIE MD ([id number]) on Diagnosis Line: 12/16/2016 10:54:46 PM INTERPRETING MD: IRINA
--- NOTE | ~2016-12-16 | EKG ---
PATIENT: KENDELL SCHNEIDER UNIT #: [id number] Ventricular Rate: 50 BPM Atrial Rate: 50 BPM P-R Interval: 186 ms QRS Duration: 96 ms Q-T Interval: 506 ms QTC Calculation(Bezet): 461 ms P [place]: 59 degrees Calculated R [place]: -6 degrees Calculated T [place]: 67 degrees Diagnosis Line: Sinus bradycardia Diagnosis Line: Nonspecific T wave abnormality Diagnosis Line: Abnormal ECG Diagnosis Line: When compared with ECG of 16-DEC-2016 17:08, Diagnosis Line: Nonspecific T wave abnormality, worse in Diagnosis Line: Anterolateral leads Diagnosis Line: Confirmed by SHANON MARIE MD ([id number]) on Diagnosis Line: 12/18/2016 7:36:42 AM INTERPRETING JUAN JOSE AREVALO
--- NOTE | ~2016-12-16 | BMI ---
[facility] Nutrition Therapy DATE: 12/17/16 Patient: KENDELL SCHNEIDER Physician: MELISSA Address: [address] [place] [address] Room/Bed: [address] [place] [address], Zip: [place] [address] Admit Date: 12/16/16 Date of : [birth year] Height: 5 4 Weight: 249 113.3 HIGH BMI NOTE: DX: 61 Y.O. FEMALE ADMITTED FOR CP ANTHROPOMETRICS: 5'4", WT: 250# (114 KG), BMI: 42.9 DIET: CONSISTENT CARBOHYRDRATE + HEALTHY HEART DIET RECOMMENDATIONS: 1. RECOMMEND TO CONTINUE CURRENT DIET ORDER ABOVE TO PROMOTE GRADUAL WEIGHT LOSS TOWARDS HEALTHY BMI (19.0-25.0) OR +/-10%IBW RD WILL F/U PER PROTOCOL Respectfully, ALLI ADAMES MS, RD, LD Food and Nutritional Services [facility] cc: client file
--- NOTE | ~2016-12-16 | CR72 ---
[facility] A Service of [facility] & [facility] RADIOLOGY TEXT RESULTS PATIENT: KENDELL SCHNEIDER LOCATION: [facility] 567-01 : 53 UNIT #: [id number] AGE: [address]: Leonides Wilson MD SEX: F ORDER DR: [id number] [facility] [address] [facility] [place] [facility]. [place], [place] [address] [id number] I MR#: [id number] Acc #: [id number] NAME: KENDELL SCHNEIDER : 1955 SEX: F STUDY DATE/TIME: 12/16/2016 17:39 UNIT: [facility] ROOM: [facility] STUDY DESCRIPTION: CR Chest Single View Portable Attending Physician: Leonides Wilson M.D. Ordering Physician: Ramirez Campbell D.O. Primary Care Physician: Dahiana Perez MEDICAL IMAGING REPORT This report is preliminary unless electronic signature is present EXAM Portable chest. INDICATION Shortness of breath, chest pain and pneumonia for 2 weeks. COMPARISON 11/30/2016 FINDINGS Interval improvement in the appearance of the chest. The airspace infiltrate in the right mid zone is no longer present. No new infiltrates. Heart size stable. IMPRESSION Improvement in appearance of the chest with resolution of airspace infiltrate within the right midzone. Dictated by... Mikael Diallo M.D. THIS IS AN ELECTRONICALLY VERIFIED REPORT Mikael Diallo M.D. at 12/18/2016 3:25 PM CRISTO/salina TD: 12/17/2016 00:12 JOB #: [id number] MEDICAL IMAGING REPORT Page 1 of 1 COPY
--- NOTE | ~2016-12-16 | CT16 ---
[facility] A Service of [facility] RADIOLOGY TEXT RESULTS PATIENT: KENDELL SCHNEIDER LOCATION: [facility] : 53 UNIT #: [id number] AGE: [address]: Leonides Wilson MD SEX: F ORDER DR: [id number] [facility] [address] [facility] [address]. [place], [place] [address] [id number] I MR#: [id number] Acc #: [id number] NAME: KENDELL SCHNEIDER : 1955 SEX: F STUDY DATE/TIME: 12/16/2016 19:58 UNIT: [facility] ROOM: [facility] STUDY DESCRIPTION: CT Angio Chest for PE Attending Physician: Leonides Wilson M.D. Ordering Physician: Ramirez Campbell D.O. Primary Care Physician: Dahiana Perez MEDICAL IMAGING REPORT This report is preliminary unless electronic signature is present EXAM CT chest PE protocol HISTORY Shortness of air, cough, elevated D-dimer. COMPARISON CT chest 11/26/2014 TECHNIQUE Axial images performed through the chest following IV contrast. 3-D, coronal and sagittal reconstructed images reviewed at a workstation. This CT exam was performed with one or more of the following radiation dose reduction techniques: automatic exposure control, adjustment of mA and/or kV according to patient size, and iterative reconstruction. FINDINGS Diffuse lung disease with cystic changes particularly along apices compatible centrilobular emphysema. Small amount of right basilar scarring. No acute airspace disease. No effusions. Trachea and bronchi unremarkable. No evidence of pulmonary embolus. Heart size within normal limits. Aorta free of dissection or aneurysm. A few shotty mediastinal lymph nodes, none pathologically enlarged. Upper abdomen unremarkable. Patient post cholecystectomy. Osseous structures and thoracic inlet unremarkable. Extrathoracic soft tissues appear normal. IMPRESSION 1. No acute intrathoracic abnormality identified. 2. Moderate central lobular emphysema. [facility] A Service of [facility] RADIOLOGY TEXT RESULTS PATIENT: KENDELL SCHNEIDER LOCATION: [facility] : 53 UNIT #: [id number] AGE: [address]: Leonides Wilson MD SEX: F ORDER DR: 3. No evidence of pulmonary embolus. Dictated by... Kimberly Diallo M.D. THIS IS AN ELECTRONICALLY VERIFIED REPORT Kimberly Diallo M.D. at 12/17/2016 2:49 PM ANNA MARIE/atul TD: 12/17/2016 02:55 JOB #: [id number] MEDICAL IMAGING REPORT Page 1 of 1 COPY
--- NOTE | ~2016-12-16 | US140 ---
[facility] A Service of [facility] & [facility] RADIOLOGY TEXT RESULTS PATIENT: KENDELL SCHNEIDER LOCATION: [facility] [place] [facility] 567-01 : 54 UNIT #: [id number] AGE: [address]: Leonides Wilson MD SEX: F ORDER DR: [id number] [facility] [address] [facility]. [place], [place] [address] [id number] I MR#: [id number] Acc #: [id number] NAME: KENDELL SCHNEIDER : 1955 SEX: F STUDY DATE/TIME: 12/16/2016 17:50 UNIT: [facility] [place] [facility] ROOM: [facility] STUDY DESCRIPTION: US UE Veins Unilat or Ltd Stdy Attending Physician: Leonides Wilson M.D. Ordering Physician: Ramirez Campbell D.O. Primary Care Physician: Dahiana Perez MEDICAL IMAGING REPORT This report is preliminary unless electronic signature is present EXAM Left upper extremity duplex venous ultrasound. INDICATION Left upper extremity pain and swelling since this morning. TECHNIQUE Stephenson-scale, color Doppler and spectral Doppler waveform imaging of the deep venous structures of the left upper extremity was performed. COMPARISON No comparisons. FINDINGS All the evaluated deep venous structures are patent and compressible without evidence for DVT. IMPRESSION The study is negative for DVT. Dictated by... Mikael Diallo M.D. THIS IS AN ELECTRONICALLY VERIFIED REPORT Mikael Diallo M.D. at 12/18/2016 3:26 PM CRISTO/salina TD: 12/17/2016 00:35 JOB #: [id number] MEDICAL IMAGING REPORT Page 1 of 1 COPY
--- NOTE | ~2016-12-16 | CR138 ---
[facility] A Service of [facility] & [facility] RADIOLOGY TEXT RESULTS PATIENT: KENDELL SCHNEIDER LOCATION: [facility] 567-01 : 53 UNIT #: [id number] AGE: [address]: Leonides Wilson MD SEX: F ORDER DR: [id number] [facility] [address] [facility]. [place], [place] [address] [id number] I MR#: [id number] Acc #: [id number] NAME: KENDELL SCHNEIDER : 1955 SEX: F STUDY DATE/TIME: 12/16/2016 21:10 UNIT: [facility] ROOM: [facility] STUDY DESCRIPTION: CR Hand 2 Views Lt Attending Physician: Leonides Wilson M.D. Ordering Physician: Ramirez Campbell D.O. Primary Care Physician: Dahiana Perez MEDICAL IMAGING REPORT This report is preliminary unless electronic signature is present EXAM Left hand 2 views HISTORY Pain and swelling and left hand and forearm since 12/16/2016 FINDINGS Examination demonstrates soft tissue swelling of the dorsum of the hand. No fracture or dislocation. No significant arthropathy. Deformity of the distal radius suggests old healed fracture. IMPRESSION Soft tissue swelling about the hand most prominent over the dorsal aspect. No underlying osseous abnormality. Dictated by... Kimberly Diallo M.D. THIS IS AN ELECTRONICALLY VERIFIED REPORT Kimberly Diallo M.D. at 12/17/2016 2:49 PM ANNA MARIE/atul TD: 12/17/2016 04:11 JOB #: [id number] MEDICAL IMAGING REPORT Page 1 of 1 COPY
[~2016-12-16 16:01] MED LIST changes: +ALBUTEROL2.5 MG/3 M; +DULOXETINE HCL30 MG PO; +FLOVENT DISKUS50 MCG; +PREDNISONE10 M1; +PROAIR HFA8.5 GM INH; +ZITHROMAX500 MG PO
[2016-12-16 17:21] LABS: BASOPHIL# 0.1 X10e3 (0-0.3); BASOPHIL% 0.7 % (0-2.5); EOSINOPHIL# 0.4 X10e3 (0-0.7); EOSINOPHIL% 3.8 % (0.0-7.0); LYMPHOCYTE# 1.3 X10e3 (1.0-3.5); LYMPHOCYTE% 13.9 % (17.0-45.0); MEAN CELL VOLUME 82.2 FL (83-96); MEAN CORPUSCULAR HEMOGLOBIN 25.4 PG (28-34); MEAN CORPUSCULAR HGB CONC 30.9 g/dL (30-36); MEAN PLATELET VOLUME 9.2 FL (6.5-11.5); MONOCYTE# 0.7 X10e3 (0-1.0); MONOCYTE% 7.7 % (3.0-12.0); NEUTROPHIL# 7.1 X10e3 (1.5-7.1); NEUTROPHIL% 73.9 % (40-75); PLATELET COUNT 232 X10e3 (140-420); RED BLOOD COUNT 3.53 X10e (3.90-5.30); RED CELL DISTRIBUTION WIDTH 17.3 % (11.0-15.5); WHITE BLOOD COUNT 9.6 X10e3 (4.0-10.5)
[2016-12-16 17:22] LABS: DIFF IND NO
[2016-12-16 17:24] LABS: POC - CKMB <1.0 ng/mL (0.0-7.9); POC - TROPONIN <0.05 ng/mL (<=0.05)
[2016-12-16 17:35] LABS: PARTIAL THROMBOPLASTIN TIME 22.4 SECONDS (23.5-31.3); PROTHROMBIN TIME (PATIENT) 10.6 SECONDS (10.0-11.7)
[2016-12-16 17:43] LABS: ALBUMIN SERUM 3.7 g/dL (3.5-5.0); ALKALINE PHOSPHATASE 89 U/L (32-92); ALT (SGPT) 23 U/L (10-40); AST (SGOT) 17 U/L (10-42); BILIRUBIN,TOTAL 0.3 mg/dL (0.2-2.0); BLOOD UREA NITROGEN 9 mg/dL (9-23); BUN/CREATININE RATIO 12.85; CALCIUM SERUM 8.7 mg/dL (8.4-10.2); CARBON DIOXIDE 28 mmol/L (22-31); CHLORIDE 107 mmol/L (100-111); CREATININE SERUM 0.7 mg/dL (0.6-1.4); GLOM FILT RATE Estimated 92.9 mL/min (>60); GLUCOSE FASTING 113 mg/dL (70-110); POTASSIUM 3.6 mmol/L (3.5-5.1); PROTEIN TOTAL SERUM 6.9 g/dL (6.0-8.3); SODIUM 142 mmol/L (135-145)
[2016-12-16 17:44] LABS: BILIRUBIN, DIRECT <0.1 mg/dL (0.0-0.2); BILIRUBIN,INDIRECT 0.2 mg/dL (0.0-0.9)
[2016-12-16 20:50] LABS: POC - CKMB <1.0 ng/mL (0.0-7.9); POC - TROPONIN <0.05 ng/mL (<=0.05)
[2016-12-16] MEDS ORDERED: DICYCLOMINE HCL20 MG PO (21:36)
[2016-12-16] MEDS ORDERED: TRILEPTAL PO (21:37)
[2016-12-16] MEDS ORDERED: IMITREX25 MG PO (21:38)
[2016-12-16] MEDS ORDERED: LOPERAMIDE HCL2 M1 PO (21:38)
[2016-12-16] MEDS ORDERED: ATROVENT HFA12.9 G2 INH (21:40)
[2016-12-17 03:00] LABS: BASOPHIL% 0.3 % (0-2.5); EOSINOPHIL% 0.1 % (0.0-7.0); HEMATOCRIT 28.4 % (35.0-45.0); HEMOGLOBIN 8.7 gm/dL (12.0-16.0); LYMPHOCYTE# 0.4 X10e3 (1.0-3.5); LYMPHOCYTE% 5.4 % (17.0-45.0); MEAN CELL VOLUME 82.3 FL (83-96); MEAN CORPUSCULAR HEMOGLOBIN 25.1 PG (28-34); MEAN CORPUSCULAR HGB CONC 30.5 g/dL (30-36); MEAN PLATELET VOLUME 8.8 FL (6.5-11.5); MONOCYTE# 0.1 X10e3 (0-1.0); NEUTROPHIL# 6.9 X10e3 (1.5-7.1); NEUTROPHIL% 93.2 % (40-75); PLATELET COUNT 215 X10e3 (140-420); RED BLOOD COUNT 3.45 X10e (3.90-5.30); RED CELL DISTRIBUTION WIDTH 17.2 % (11.0-15.5); WHITE BLOOD COUNT 7.4 X10e3 (4.0-10.5)
[2016-12-17 03:05] LABS: DIFF IND NO
[2016-12-17 03:18] LABS: CK TOTAL 24 IU/L (26-140)
[2016-12-17 03:22] LABS: BUN/CREATININE RATIO 14.28; CALCIUM SERUM 8.4 mg/dL (8.4-10.2); CREATININE SERUM 0.7 mg/dL (0.6-1.4); GLOM FILT RATE Estimated 92.9 mL/min (>60); POTASSIUM 4.5 mmol/L (3.5-5.1)
[2016-12-17 09:48] LABS: CK TOTAL 23 IU/L (26-140)
[2016-12-17 15:24] LABS: CK TOTAL 25 IU/L (26-140)
[2016-12-18 07:24] LABS: BUN/CREATININE RATIO 22.5; CALCIUM SERUM 8.7 mg/dL (8.4-10.2); CREATININE SERUM 0.8 mg/dL (0.6-1.4); GLOM FILT RATE Estimated 79.1 mL/min (>60); POTASSIUM 3.3 mmol/L (3.5-5.1)
[2016-12-18] MEDS ORDERED: LOPRESSOR PO (12:17)
[2016-12-18] MEDS ORDERED: K-DUR20 ME1 PO (12:18)
[2017-01-22] MEDS ORDERED: ZOFRAN PO (16:05)
== END 2016-12-18 12:45 | disposition home or self-care (01) ==
LOC: CED 16:01 → C5C 21:10 → CEDOF 21:10 → C5C 21:10 → CED 22:00 → CEDOF 22:00 → C5C 23:37
PROVIDERS: Emergency Medicine; Internal Medicine; Internal Medicine Cardiovascular Disease
DX: R07.89 Other chest pain (principal); J44.9 Chronic obstructive pulmonary disease, unspecified; J96.10 Chronic respiratory failure, unspecified whether with hypoxia or hypercapnia; Z99.81 Dependence on supplemental oxygen; E78.5 Hyperlipidemia, unspecified; Z87.01 Personal history of pneumonia (recurrent); I10 Essential (primary) hypertension; E66.01 Morbid (severe) obesity due to excess calories; Z68.41 Body mass index [BMI] 40.0-44.9, adult; M79.89 Other specified soft tissue disorders; D64.9 Anemia, unspecified; Z82.49 Family history of ischemic heart disease and other diseases of the circulatory system; Z87.891 Personal history of nicotine dependence
CPT/HCPCS: 36415; 71010; 71275; 73090; 73120; 80048; 80061; 80076; 82550; 82553; 83880; 84484; 85025; 85379; 85610; 85730; 93005; 93971; 94640; 94760; 96374; 99285; G0378; J1650; J2920; Q9967

== ENCOUNTER 2017-01-08 12:59 | Inpatient (IN) | payer MEDICARE, OTHER ==
--- NOTE | ~2017-01-08 | HP ---
Unit #: [id number] #: [id number] Patient: KENDELL SCHNEIDER [id number] [address] [address] [id number] I MR#: [id number] NAME: KENDELL SCHNEIDER ROOM: 217 Age: 61 Sex: F Admission Date: 01/08/2017 : 1955 Attending Physician: Markus Torres M.D. HISTORY AND PHYSICAL CHIEF COMPLAINT Dizziness with standing. HISTORY OF PRESENT ILLNESS The patient is a 61-year-old female who presented to [facility] Emergency Department with the complaint of dizziness with standing. She states that it has been progressive over the course of several days. It is better with sitting. It is associated with shortness of breath with exertion. She denies chest pain. She denies any signs or symptoms of blood loss. She states that she has had a noticeable increase in bruising. PAST MEDICAL HISTORY 1. Chronic obstructive pulmonary disease. 2. Chronic respiratory failure on three liters home O2. 3. Hypertension. 4. Anxiety and depression. 5. Gastroesophageal reflux disease. 6. Degenerative joint disease. 7. Chronic back pain. 8. Chronic diastolic heart failure. 9. Trigeminal neuralgia. PAST SURGICAL HISTORY 1. Bilateral tubal ligation. 2. Wrist surgery. 3. Umbilical hernia repair. 4. Right ear surgery. 5. Laparoscopic cholecystectomy. FAMILY HISTORY Coronary artery disease. HOME MEDICATIONS 1. Metoprolol succinate 25 mg p.o. daily. 2. Pravastatin 40 mg p.o. at bedtime. 3. Nexium 40 mg daily. 4. Hydralazine 25 mg p.o. t.i.d. 5. Bumex 2 mg p.o. daily. 6. Bentyl 30 mg 30 minutes before meals. 7. Cymbalta 30 mg p.o. daily. 8. Norvasc 5 mg p.o. daily. 9. Oxcarbazepine 150 mg p.o. b.i.d. 10. Carbamazepine 200 mg p.o. daily. Unit #: [id number] #: [id number] Patient: KENDELL SCHNEIDER 11. Imitrex 25 mg daily as needed for migraine. 12. Phenergan 25 mg p.o. t.i.d. 13. Docusate sodium 100 mg p.o. at bedtime. 14. Loperamide 2 mg daily. 15. Flonase daily. 16. Albuterol q.4 hours p.r.n. 17. Atrovent 2 puffs q.4 hours p.r.n. 18. Advair 500/50 at 1 puff b.i.d. 19. Nystatin 5 mL q.i.d. p.r.n. 20. Clobetasol cream as needed. 21. Triamcinolone cream as needed. 22. [place] 7.5/325 at 1 p.o. q.i.d. p.r.n. 23. Neurontin 800 mg p.o. q.i.d. 24. BuSpar 5 mg p.o. b.i.d. 25. Singulair 10 mg p.o. at bedtime. REVIEW OF SYSTEMS A 10-point review of systems was obtained and negative except as per History of Present Illness. PHYSICAL EXAMINATION VITAL SIGNS: Temperature 98, pulse 65, and blood pressure 153/90. GENERAL: A 61-year-old female in no acute distress who appears stated age. HEENT: Pupils equally round. Extraocular movements intact. Mucous membranes are dry. NECK: Supple. No JVD, no lymphadenopathy. CARDIAC: Regular rate and rhythm. No murmurs, gallops, or rubs. LUNGS: Clear to auscultation bilaterally. ABDOMEN: Nontender and nondistended. Positive bowel sounds. EXTREMITIES: No clubbing, cyanosis, or edema. They are warm and dry. PSYCHIATRIC: Alert and oriented x3. Affect is appropriate. NEUROLOGIC: Cranial nerves II-XII intact grossly. Patient moves all extremities equally and with purpose. SKIN: No rashes or ulcers. She has diffuse bruises on her arms bilaterally. MUSCULOSKELETAL: No muscle or joint pain. No muscle or joint swelling. DIAGNOSTIC STUDIES LABORATORY: Potassium is 3.2. Hemoglobin 7.8 with MCV of 79 and RDW of 17. ASSESSMENT AND PLAN 1. Symptomatic anemia. The patient is reported as Hemoccult negative. The patient denies any overt signs of bleeding. I have ordered laboratory workup for her anemia and then ordered a transfusion. Depending on the results of her laboratories, a Hematology consult could be considered. 2. Hypokalemia. The patient has been started on a replacement protocol. 3. Chronic diastolic heart failure. I have continued the patient's Bumex. 4. Hypertension. Continue home medications. 5. Prophylaxis. The patient has been started on sequential compression devices. 1. Dictated by Markus Torres M.D. Unit #: [id number] #: [id number] Patient: KENDELL SCHNEIDER EYAD/robert TD: 01/08/2017 17:40 JOB #: [id number] HISTORY AND PHYSICAL Page 1 of 1 X Markus Torres MD X HISTORY AND PHYSICAL
--- NOTE | ~2017-01-08 | BMI ---
[facility] Nutrition Therapy DATE: 01/09/17 Patient: KENDELL SCHNEIDER Physician: GLENIS Address: [address] [place] [address] Room/Bed: [address] [place] [address], Zip: [place] [address] Admit Date: 01/08/17 Date of : [birth year] Height: 5 4 Weight: 241 109.31 HIGH BMI NOTE: DX: 61 Y.O. FEMALE ADMITTED FOR SYMPTOMATIC ANEMIA ANTHROPOMETRICS: 5'4", WT: 240# (109 KG), BMI: 41.2 DIET: REGULAR RECOMMENDATIONS: 1. RECOMMEND TO CHANGE CURRENT DIET ORDER TO CC+HH TO PROMOTE GRADUAL WEIGHT LOSS TOWARDS HEALTHY BMI (19.0-25.0) OR +/-10%IBW RD WILL F/U PER PROTOCOL Respectfully, ALLI ADAMES MS, RD, LD Food and Nutritional Services [facility] cc: client file
--- NOTE | ~2017-01-08 | DS ---
Unit #: [id number] #: [id number] Patient: KENDELL SCHNEIDER [id number] [address] [place], [place] [address] [id number] I MR#: [id number] NAME: KENDELL SCHNEIDER ROOM: 217 Age: 61 Sex: F Admission Date: 01/08/2017 : 1955 Discharge Date: 01/09/2017 Attending Physician: Cornel Aguilar M.D. Referring Physician: Generic Doctor Not In System Primary Care Physician: Generic Doctor Not In System DISCHARGE SUMMARY PRIMARY DIAGNOSIS Symptomatic anemia. SECONDARY DIAGNOSES 1. B12 deficiency. 2. Iron deficiency. 3. Chronic hypoxemic respiratory failure. 4. Morbid obesity. 5. Chronic obstructive pulmonary disease. 6. Possible obstructive sleep apnea. 7. Hypertension. HOSPITAL COURSE The patient was admitted to the hospital with symptomatic anemia. Initial B12 and iron studies suggested iron deficiency and B12 deficiency. Folate levels were also borderline but within normal limits at a level of 7.5. The patient's transferrin and total iron binding capacity numbers were normal suggesting no anemia of chronic disease. She is going to be given a subcu injection of B12 prior to discharge and then she is going to be on B12 and iron supplementation outpatient. Additionally, I have asked her to follow up with Dr. Arrington with general surgery who has performed her colonoscopy within the last year and to consider getting an EGD. Of note, the patient was recommended to have an anemia workup at her last discharge less than a month ago, but it does not appear that had happened yet. The patient's hemoglobin improved from a level of 7.8 up to 10.2 with 2 units of packed red blood cells. She had no signs of bleeding and was Hemoccult negative on testing in the emergency room. There is no other evidence of blood loss at this time, and no additional blood testing was ordered at the time of admission and is not indicated emergently at this time. Should her EGD be normal and her anemia fail to improve with B12 and iron supplementation, further workup may be necessary outpatient with referral to hematology. The patient was additionally told to stop taking her carbamazepine, which she had been on for trigeminal neuralgia of the left side of her face. She is advised to follow up with her regular neurologist in 1-3 weeks, in addition to her primary care doctor and her surgeon, as described in the previous dictation. DISCHARGE MEDICATIONS 1. Albuterol sulfate 1 vial q.4 hours p.r.n. wheezing. 2. Advair 500/50 one puff b.i.d. Unit #: [id number] #: [id number] Patient: KENDELL SCHNEIDER 3. Atrovent 2 puffs q.4 hours p.r.n. 4. Triamcinolone cream 1 application topically p.r.n. itching on the legs. 5. Flonase 2 sprays NA daily. 6. Clobetasol cream 1 application daily in the vagina p.r.n. itching. 7. Gabapentin 800 mg p.o. q.i.d. 8. Oxtellar XR 150 mg p.o. b.i.d. 9. Cymbalta 30 mg p.o. daily. 10. Loperamide 2 mg p.o. daily. 11. Nystatin 5 mL p.o. q.i.d. p.r.n. 12. Phenergan 25 mg p.o. t.i.d. 13. Bentyl 30 mg p.o. 30 to 40 minutes before meals t.i.d. 14. BuSpar 5 mg p.o. b.i.d. 15. Metoprolol SR 25 mg p.o. daily. 16. Docusate 100 mg p.o. q.h.s. 17. Imitrex 25 mg p.o. daily p.r.n. headache. 18. Bumex 2 mg p.o. daily. 19. Pravastatin 40 mg p.o. q.h.s. 20. Hydralazine 25 mg p.o. t.i.d. 21. Singulair 10 mg p.o. q.h.s. 22. [place] 7.5/325 mg 1 tablet p.o. q.i.d. 23. Nexium 40 mg p.o. daily. 24. Vitamin B12 - 1,000 mcg p.o. daily. 25. Iron sulfate 325 mg p.o. b.i.d. with food. Dictated by... Cornel Aguilar M.D. HALEY/jessica TD: 01/13/2017 07:46 JOB #: [id number] DISCHARGE SUMMARY Page 1 of 1 X Cornel Aguilar MD X DISCHARGE SUMMARY
[~2017-01-08 12:59] MED LIST changes: +ATROVENT HFA12.9 G2 INH; +K-DUR20 ME1 PO; +LOPERAMIDE HCL2 M1 PO; +LOPRESSOR PO; +TRILEPTAL PO
[2017-01-08 14:12] LABS: BASOPHIL% 0.7 % (0-2.5); EOSINOPHIL# 0.2 X10e3 (0-0.7); EOSINOPHIL% 3.3 % (0.0-7.0); HEMATOCRIT 25.7 % (35.0-45.0); HEMOGLOBIN 7.8 gm/dL (12.0-16.0); LYMPHOCYTE# 0.9 X10e3 (1.0-3.5); LYMPHOCYTE% 14.7 % (17.0-45.0); MEAN CELL VOLUME 79.5 FL (83-96); MEAN CORPUSCULAR HEMOGLOBIN 24.3 PG (28-34); MEAN CORPUSCULAR HGB CONC 30.6 g/dL (30-36); MEAN PLATELET VOLUME 8.9 FL (6.5-11.5); MONOCYTE# 0.5 X10e3 (0-1.0); MONOCYTE% 8.3 % (3.0-12.0); NEUTROPHIL# 4.6 X10e3 (1.5-7.1); PLATELET COUNT 210 X10e3 (140-420); RED BLOOD COUNT 3.23 X10e (3.90-5.30); RED CELL DISTRIBUTION WIDTH 17.4 % (11.0-15.5); WHITE BLOOD COUNT 6.4 X10e3 (4.0-10.5)
[2017-01-08 14:23] LABS: PARTIAL THROMBOPLASTIN TIME 23.3 SECONDS (23.5-31.3)
[2017-01-08 14:25] LABS: DIFF IND YES
[2017-01-08 14:44] LABS: ALBUMIN SERUM 3.4 g/dL (3.5-5.0); BILIRUBIN, DIRECT 0.1 mg/dL (0.0-0.2); BILIRUBIN,INDIRECT 0.5 mg/dL (0.0-0.9); BILIRUBIN,TOTAL 0.6 mg/dL (0.2-2.0); CALCIUM SERUM 8.4 mg/dL (8.4-10.2); CREATININE SERUM 0.4 mg/dL (0.6-1.4); GLOM FILT RATE Estimated 111.7 mL/min (>60); POTASSIUM 3.2 mmol/L (3.5-5.1); PROTEIN TOTAL SERUM 6.5 g/dL (6.0-8.3)
[2017-01-08 15:11] LABS: ANISOCYTOSIS MOD; PLATELET ESTIMATE NORMAL (NORMAL); POIKILOCYTOSIS SL
[2017-01-08] MEDS ORDERED: PATIENT'S PHARMACY (15:41)
[2017-01-08] MEDS ORDERED: METOPROLOL SUCC25 MG PO (15:41)
[2017-01-08] MEDS ORDERED: NEXIUM PO (15:41)
[2017-01-08] MEDS ORDERED: PRAVASTATIN SOD40 MG PO (15:41)
[2017-01-08] MEDS ORDERED: HYDRALAZINE HCL25 MG PO (15:42)
[2017-01-08] MEDS ORDERED: BENTYL10 M1 PO (15:47)
[2017-01-08] MEDS ORDERED: BUMEX2 MG PO (15:47)
[2017-01-08] MEDS ORDERED: CYMBALTA30 M1 PO (15:49)
[2017-01-08] MEDS ORDERED: OXTELLAR XR150 MG PO (15:49)
[2017-01-08] MEDS ORDERED: NORVASC PO (15:49)
[2017-01-08] MEDS ORDERED: PHENERGAN PO (15:50)
[2017-01-08] MEDS ORDERED: IMITREX PO (15:50)
[2017-01-08] MEDS ORDERED: EQUETRO100 MG PO (15:50)
[2017-01-08] MEDS ORDERED: COL-RITE50 MG PO (15:51)
[2017-01-08] MEDS ORDERED: LOPERAMIDE HCL2 M1 PO (15:51)
[2017-01-08] MEDS ORDERED: FLONASE ALLERG9.9 ML (15:52)
[2017-01-08] MEDS ORDERED: ALBUTEROL2.5 MG/3 M NEB (15:52)
[2017-01-08] MEDS ORDERED: NYSTATIN100000 UN1 PO (15:53)
[2017-01-08] MEDS ORDERED: ATROVENT HFA12.9 GM INH (15:53)
[2017-01-08] MEDS ORDERED: ADVAIR 500-501 EACH INH (15:53)
[2017-01-08] MEDS ORDERED: TRIAMCINOLONE A15 G3 (15:54)
[2017-01-08] MEDS ORDERED: CLOBETASOL 0.0560 GM VAG (15:54)
[2017-01-08] MEDS ORDERED: BUSPAR5 M1 PO (15:55)
[2017-01-08] MEDS ORDERED: SINGULAIR PO (15:55)
[2017-01-08] MEDS ORDERED: GABAPENTIN400 MG PO (15:55)
[2017-01-08] MEDS ORDERED: HYDROCODON-ACE1 EAC9 PO (15:55)
[2017-01-08 17:32] LABS: FOLATE (FOLIC ACID) 7.5 ng/mL (>5.8)
[2017-01-09 03:12] LABS: HEMATOCRIT 32.2 % (35.0-45.0); MEAN CELL VOLUME 82.1 FL (83-96); MEAN CORPUSCULAR HEMOGLOBIN 25.3 PG (28-34); MEAN CORPUSCULAR HGB CONC 30.8 g/dL (30-36); MEAN PLATELET VOLUME 8.7 FL (6.5-11.5); RED BLOOD COUNT 3.92 X10e (3.90-5.30); RED CELL DISTRIBUTION WIDTH 17.1 % (11.0-15.5); WHITE BLOOD COUNT 6.6 X10e3 (4.0-10.5)
[2017-01-09 03:16] LABS: HEMOGLOBIN 9.9 gm/dL (12.0-16.0)
[2017-01-09 04:01] LABS: MAGNESIUM 1.9 mg/dL (1.6-3.0); POTASSIUM 3.4 mmol/L (3.5-5.1)
[2017-01-09 11:26] LABS: HEMATOCRIT 32.7 % (35.0-45.0); HEMOGLOBIN 10.2 gm/dL (12.0-16.0); MEAN CELL VOLUME 82.4 FL (83-96); MEAN CORPUSCULAR HEMOGLOBIN 25.6 PG (28-34); MEAN CORPUSCULAR HGB CONC 31.1 g/dL (30-36); MEAN PLATELET VOLUME 9.2 FL (6.5-11.5); RED BLOOD COUNT 3.97 X10e (3.90-5.30); RED CELL DISTRIBUTION WIDTH 17.4 % (11.0-15.5); WHITE BLOOD COUNT 5.9 X10e3 (4.0-10.5)
[2017-01-09] MEDS ORDERED: B-121000 MC1 PO (12:48)
[2017-01-09] MEDS ORDERED: IRON325 MG PO (12:49)
[2017-01-22] MEDS ORDERED: ZOFRAN PO (16:05)
== END 2017-01-09 14:42 | disposition home or self-care (01) | DRG 812 ==
LOC: CED 12:59 → CEDOF 17:26 → C2A 17:26 → CEDOF 01-09 09:36 → C2A 01-09 09:37
PROVIDERS: Emergency Medicine; Internal Medicine
PROC: 30233N1 Transfusion of Nonautologous Red Blood Cells into Peripheral Vein, Percutaneous Approach (ICD-10-PCS; principal; 2017-01-08)
DX: D50.9 Iron deficiency anemia, unspecified (principal); J96.11 Chronic respiratory failure with hypoxia; Z99.81 Dependence on supplemental oxygen; I11.0 Hypertensive heart disease with heart failure; I50.32 Chronic diastolic (congestive) heart failure; Z68.41 Body mass index [BMI] 40.0-44.9, adult; E66.01 Morbid (severe) obesity due to excess calories; E53.8 Deficiency of other specified B group vitamins; J44.9 Chronic obstructive pulmonary disease, unspecified; G47.33 Obstructive sleep apnea (adult) (pediatric); F41.9 Anxiety disorder, unspecified; F32.9 Major depressive disorder, single episode, unspecified; K21.9 Gastro-esophageal reflux disease without esophagitis; M19.90 Unspecified osteoarthritis, unspecified site; G50.0 Trigeminal neuralgia; Z90.49 Acquired absence of other specified parts of digestive tract; Z98.51 Tubal ligation status; E87.6 Hypokalemia
CPT/HCPCS: 36415; 80048; 80076; 82607; 82728; 82746; 83540; 83550; 83735; 84132; 85025; 85027; 85610; 85730; 86850; 86900; 86901; 86923; 94664; 94760; 99284; J3420; J3475; P9016

== ENCOUNTER → 2017-01-22 | Day surgery (SDC) | payer MEDICARE, OTHER ==
[~2017-01-22] MED LIST changes: +ADVAIR 250-501 EAC1 INH; +ALBUTEROL2.5 MG/3 M INH; +ALBUTEROL2.5 MG/3 M NEB; +ATROVENT HFA12.9 GM INH; +B-121000 MC1 PO; +BENTYL10 M1 PO; +CLOBETASOL 0.0560 GM VAG; +CLOBETASOL PROP15 G1 TOP; +COL-RITE50 MG PO; +CYMBALTA30 MG PO; +EQUETRO100 MG PO; +FLONASE 0.05% N16 G1; +FLONASE ALLERG9.9 ML; +GABAPENTIN400 MG PO; +HYDROCODON-ACE1 EAC5 PO; +IMITREX PO; +IRON325 MG PO; +NYSTATIN100000 UN1 PO; +OXCARBAZEPINE150 MG PO; +OXTELLAR XR150 MG PO; +PATIENT'S PHARMACY; +SINGULAIR PO; +TRIAMCINOLONE A15 G3; +ZOFRAN PO
--- NOTE | ~2017-01-22 | OR ---
Unit #: [id number] #: [id number] Patient: KENDELL SCHNEIDER [id number] [facility] [address]. [place], [place] [address] [id number] O MR#: [id number] NAME: KENDELL SCHNEIDER ROOM: Date of Procedure: 01/22/2017 Admission Date: 01/22/2017 Surgeon: Jason Arrington M.D. : 1955 Attending Physician: Jason Arrington M.D. OPERATIVE REPORT PREOPERATIVE DIAGNOSES 1. Melena and epigastric pain. 2. History of symptomatic anemia. POSTOPERATIVE DIAGNOSES Schatzki ring. PROCEDURES PERFORMED Esophagogastroduodenoscopy to third portion of the duodenum with balloon dilatation of Schatzki ring at gastroesophageal junction. ANESTHESIA Monitored anesthesia. INDICATIONS FOR PROCEDURE Ms. Schneider is a 62-year-old female with oxygen-dependent COPD, who has had several steroid courses for COPD exacerbations. She developed symptomatic anemia with a hemoglobin of 7, requiring transfusion and at the time of evaluation, she complained of melanotic stools. She has been on steroids and aspirin, so she was brought in to rule out a bleeding upper GI lesion. DESCRIPTION OF PROCEDURE The patient was admitted to [facility], positively identified and transported to the endoscopy unit and after appropriate monitoring and positioning, a bite block was placed and she was sedated by the anesthesiologist. The endoscope was passed through the oral cavity in the esophagus. Under direct vision, we passed through the esophagus and at the GE junction, there was no significant esophagitis or [place] mucosa, but she did have a mild Schatzki ring. I could pass the scope through without difficulty and we insufflated the stomach, passed through the pylorus and down to the third portion of the duodenum. There was no evidence of any fresh blood in the upper GI tract. The duodenum was normal on antegrade and retrograde visualization. As I came back in the stomach, we retroflexed the scope above the incisura, and no other findings in the upper fundus or cardia were noted. As I came back in a retrograde fashion, the Schatzki ring was dilated to 20 mm. There was no bleeding. The rest of the esophagus appeared normal and the larynx appeared normal. The patient tolerated the procedure well and transported to recovery in stable condition. Findings were discussed with her family. We will follow her up to ensure that her hemoglobin remained stable. Unit #: [id number] #: [id number] Patient: KENDELL SCHNEIDER Dictated by... Cameron Tatum/henry TD: 01/22/2017 19:29 JOB #: [id number] OPERATIVE REPORT Page 1 of 1 X Jason Arrington MD X PROCEDURE OPERATIVE NOTE
== END | disposition home or self-care (01) ==
LOC: COPS 12:18
DX: K22.2 Esophageal obstruction (principal); J44.9 Chronic obstructive pulmonary disease, unspecified; K21.9 Gastro-esophageal reflux disease without esophagitis; J45.909 Unspecified asthma, uncomplicated; I11.0 Hypertensive heart disease with heart failure; I50.9 Heart failure, unspecified; E78.00 Pure hypercholesterolemia, unspecified; E78.5 Hyperlipidemia, unspecified; G43.909 Migraine, unspecified, not intractable, without status migrainosus; E66.9 Obesity, unspecified; M17.11 Unilateral primary osteoarthritis, right knee; D64.9 Anemia, unspecified; F41.9 Anxiety disorder, unspecified; E66.01 Morbid (severe) obesity due to excess calories; Z68.41 Body mass index [BMI] 40.0-44.9, adult; Z87.891 Personal history of nicotine dependence; Z87.442 Personal history of urinary calculi; Z79.51 Long term (current) use of inhaled steroids; Z79.899 Other long term (current) drug therapy; Z98.51 Tubal ligation status; Z99.81 Dependence on supplemental oxygen; Z90.49 Acquired absence of other specified parts of digestive tract; Z98.890 Other specified postprocedural states

== ENCOUNTER → 2017-02-20 | Outpatient (CLI) | payer MEDICARE, OTHER ==
--- NOTE | ~2017-02-20 | MY24 ---
[facility] A Service of [facility] & [facility] RADIOLOGY TEXT RESULTS PATIENT: KENDELL SCHNEIDER LOCATION: [facility] : 54 UNIT #: [id number] AGE: [address]: ALMA VIGIL APRN SEX: F ORDER DR: [id number] [facility] [address] [place], [place] [address] [id number] O MR#: [id number] Acc #: [id number] NAME: KENDELL SCHNEIDER : 1955 SEX: F STUDY DATE/TIME: 02/20/2017 12:12 UNIT: [facility] ROOM: STUDY DESCRIPTION: ALEA CABALLERO W/ CAD UNI LT Attending Physician: Alma Vigil Ordering Physician: Staff Doctor Not On Primary Care Physician: Alma Vigil MEDICAL IMAGING REPORT This report is preliminary unless electronic signature is present EXAMINATION Left breast digital diagnostic mammogram with CAD. DATE 02/20/2017 HISTORY Follow up on left breast nodule seen on previous diagnostic imaging. COMPARISON Left breast digital diagnostic mammogram and ultrasound 07/02/2016. Bilateral screening mammogram 03/02/2015. FINDINGS CC and MLO and true ML views were obtained of the left breast utilizing digital technique and reviewed with an FDA-approved CAD device. Scattered fibroglandular densities are present. A previously questioned area of asymmetric density in the medial hemisphere of the left breast on the 2016 screening mammogram has no abnormal correlate today, and demonstrated no abnormality on the dedicated diagnostic imaging from 07/02/2016. An oval slightly macro-lobulated 1 cm nodule within the subareolar left breast near the 4 o'clock axis is unchanged, and appears very similar to the 03/02/2015 exam. On previous ultrasound had features of a benign intramammary lymph node. Given its relative stability for nearly 2 years, it is in keeping with a benign finding. No new nodules are identified. Benign and less than 5 mm nodules in the posterior third of the left breast upper/outer quadrant thought to represent intramammary nodes, likewise, stable. Single lucent-centered calcification is seen in the central left breast. No suspicious clustered microcalcifications. No architectural distortion. [facility] A Service of [facility] & [facility] RADIOLOGY TEXT RESULTS PATIENT: KENDELL SCHNEIDER LOCATION: [facility] : 53 UNIT #: [id number] AGE: [address]: ALMA VIGIL APRN SEX: F ORDER DR: IMPRESSION 1. BIRADS 2. Benign findings in the left breast. The nodular density in the subareolar 4 o'clock position is unchanged from 03/02/2015 in keeping with a benign finding. 2. It is recommended that the patient return for routine bilateral screening mammograms cycle, due in April 2017. 3. Findings and recommendations were discussed with the patient today in the radiology department. Patients over the age of 40 are entered into a reminder system with target due date for the next mammogram. A result letter will also be sent to the patient. BIRADS: 2 Benign findings. Dictated by... Ilene Montgomery M.D. THIS IS AN ELECTRONICALLY VERIFIED REPORT Ilene Montgomery M.D. at 02/25/2017 3:26 PM Ryland TD: 02/20/2017 23:53 JOB #: [id number] MEDICAL IMAGING REPORT Page 1 of 1 COPY
== END | disposition home or self-care (01) ==
LOC: CWCC 01-09 10:30
DX: R92.8 Other abnormal and inconclusive findings on diagnostic imaging of breast (principal); R92.2 Inconclusive mammogram
CPT/HCPCS: G0206

== ENCOUNTER 2017-02-22 19:16 | Emergency (ER) | payer MEDICARE, OTHER ==
[~2017-02-22] VITALS: Ht 162.6 cm; Wt 109.8 kg
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
--- NOTE | ~2017-02-22 | EKG ---
PATIENT: KENDELL SCHNEIDER UNIT #: [id number] Ventricular Rate: 61 BPM Atrial Rate: 61 BPM P-R Interval: 182 ms QRS Duration: 94 ms Q-T Interval: 458 ms QTC Calculation(Bezet): 461 ms P [place]: 69 degrees Calculated T [place]: 76 degrees Diagnosis Line: Normal sinus rhythm Diagnosis Line: Normal ECG Diagnosis Line: When compared with ECG of 18-DEC-2016 05:53, Diagnosis Line: Nonspecific T wave abnormality, improved in Diagnosis Line: Anterolateral leads Diagnosis Line: Confirmed by ROLAND SHAW MD ([id number]) on 02/23/2017 Diagnosis Line: 7:51:50 PM INTERPRETING MD: COLIN CLINE
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
[~2017-02-22 19:16] MED LIST changes: -ADVAIR 250-501 EAC1 INH; -ALBUTEROL2.5 MG/3 M INH; -CLOBETASOL PROP15 G1 TOP; -CYMBALTA30 MG PO; -FLONASE 0.05% N16 G1; -HYDROCODON-ACE1 EAC5 PO; -OXCARBAZEPINE150 MG PO
[2017-02-22 19:51] LABS: BASOPHIL% 0.6 % (0-2.5); EOSINOPHIL# 0.2 X10e3 (0-0.7); EOSINOPHIL% 2.9 % (0.0-7.0); HEMATOCRIT 35.2 % (35.0-45.0); HEMOGLOBIN 11.4 gm/dL (12.0-16.0); LYMPHOCYTE# 1.8 X10e3 (1.0-3.5); LYMPHOCYTE% 26.9 % (17.0-45.0); MEAN CELL VOLUME 89.5 FL (83-96); MEAN CORPUSCULAR HEMOGLOBIN 28.9 PG (28-34); MEAN CORPUSCULAR HGB CONC 32.3 g/dL (30-36); MONOCYTE# 0.6 X10e3 (0-1.0); MONOCYTE% 8.7 % (3.0-12.0); NEUTROPHIL# 4.1 X10e3 (1.5-7.1); NEUTROPHIL% 60.9 % (40-75); PLATELET COUNT 175 X10e3 (140-420); RED BLOOD COUNT 3.93 X10e (3.90-5.30); RED CELL DISTRIBUTION WIDTH 19.6 % (11.0-15.5); WHITE BLOOD COUNT 6.7 X10e3 (4.0-10.5)
[2017-02-22 20:03] LABS: DIFF IND NO
[2017-02-22 20:18] LABS: BILIRUBIN, DIRECT 0.1 mg/dL (0.0-0.2); BILIRUBIN,INDIRECT 0.3 mg/dL (0.0-0.9); BILIRUBIN,TOTAL 0.4 mg/dL (0.2-2.0); BUN/CREATININE RATIO 15.71; CREATININE SERUM 0.7 mg/dL (0.6-1.4); GLOM FILT RATE Estimated 92.2 mL/min (>60); POTASSIUM 3.5 mmol/L (3.5-5.1); PROTEIN TOTAL SERUM 6.9 g/dL (6.0-8.3)
[2017-02-22 20:58] LABS: POC - CKMB 1.3 ng/mL (0.0-7.9); POC - TROPONIN <0.05 ng/mL (<=0.05)
[2017-02-22 21:42] LABS: POC - CKMB <1.0 ng/mL (0.0-7.9); POC - TROPONIN <0.05 ng/mL (<=0.05)
== END 2017-02-22 23:56 | disposition home or self-care (01) ==
LOC: CED 19:16
PROVIDERS: Emergency Medicine
DX: J44.1 Chronic obstructive pulmonary disease with (acute) exacerbation (principal); I10 Essential (primary) hypertension; Z87.891 Personal history of nicotine dependence; Z90.49 Acquired absence of other specified parts of digestive tract; Z98.51 Tubal ligation status; Z79.899 Other long term (current) drug therapy
CPT/HCPCS: 36415; 71010; 72040; 80048; 80076; 82553; 84484; 85025; 93005; 94640; 96361; 96374; 96375; 99285; J2270; J2405; J2930

== ENCOUNTER 2017-02-26 06:50 | Emergency (ER) | payer MEDICARE, OTHER ==
[2017-02-26 08:31] LABS: BASOPHIL% 0.4 % (0-2.5); DIFF IND YES; EOSINOPHIL# 0.1 X10e3 (0-0.7); EOSINOPHIL% 0.7 % (0.0-7.0); HEMATOCRIT 35.1 % (35.0-45.0); HEMOGLOBIN 11.8 gm/dL (12.0-16.0); LYMPHOCYTE# 1.8 X10e3 (1.0-3.5); LYMPHOCYTE% 17.1 % (17.0-45.0); MEAN CELL VOLUME 89.4 FL (83-96); MEAN CORPUSCULAR HGB CONC 33.5 g/dL (30-36); MEAN PLATELET VOLUME 10.1 FL (6.5-11.5); MONOCYTE# 0.9 X10e3 (0-1.0); MONOCYTE% 8.7 % (3.0-12.0); NEUTROPHIL# 7.8 X10e3 (1.5-7.1); NEUTROPHIL% 73.1 % (40-75); PLATELET COUNT 181 X10e3 (140-420); RED BLOOD COUNT 3.92 X10e (3.90-5.30); RED CELL DISTRIBUTION WIDTH 19.1 % (11.0-15.5); WHITE BLOOD COUNT 10.7 X10e3 (4.0-10.5)
[2017-02-26 08:48] LABS: BUN/CREATININE RATIO 27.5; CALCIUM SERUM 8.8 mg/dL (8.4-10.2); CREATININE SERUM 0.8 mg/dL (0.6-1.4); GLOM FILT RATE Estimated 78.5 mL/min (>60); POTASSIUM 3.5 mmol/L (3.5-5.1)
[2017-02-26 08:58] LABS: PLATELET ESTIMATE NORMAL (NORMAL)
[2017-02-26 08:59] LABS: ANISOCYTOSIS MOD
== END 2017-02-26 09:50 | disposition home or self-care (01) ==
LOC: CED 06:50
PROVIDERS: Emergency Medicine
DX: S01.81XA Laceration without foreign body of other part of head, initial encounter (principal); Z23 Encounter for immunization; I10 Essential (primary) hypertension; K21.9 Gastro-esophageal reflux disease without esophagitis; F41.9 Anxiety disorder, unspecified; J44.9 Chronic obstructive pulmonary disease, unspecified; Z98.51 Tubal ligation status; W55.01XA Bitten by cat, initial encounter
CPT/HCPCS: 12011; 80048; 85025; 90471; 90715; 99283

== ENCOUNTER 2017-03-12 20:13 | Inpatient (IN) | payer MEDICARE, OTHER ==
[~2017-03-12] VITALS: Ht 162.6 cm; Wt 109.6 kg
--- NOTE | ~2017-03-12 | EKG ---
PATIENT: KENDELL SCHNEIDER UNIT #: [id number] Ventricular Rate: 76 BPM Atrial Rate: 76 BPM P-R Interval: 164 ms QRS Duration: 84 ms Q-T Interval: 396 ms QTC Calculation(Bezet): 445 ms P [place]: 65 degrees Calculated T [place]: 62 degrees Diagnosis Line: Normal sinus rhythm Diagnosis Line: Nonspecific ST abnormality Diagnosis Line: Abnormal ECG Diagnosis Line: When compared with ECG of 22-FEB-2017 19:35, Diagnosis Line: No significant change was found Diagnosis Line: Confirmed by AUSTYN CASTRO MD ([id number]) on Diagnosis Line: 03/13/2017 11:37:23 AM INTERPRETING MD: GLORIA CLINE
--- NOTE | ~2017-03-12 | BMI ---
[facility] Nutrition Therapy DATE: 03/14/17 Patient: KENDELL SCHNEIDER Physician: MELISSA [address]: [address] [place] [address] Room/Bed: [address] [place] [address], Zip: [place] [address] Admit Date: 03/13/17 Date of : [birth year] Height: 5 4 Weight: 250 113.39 HIGH BMI NOTE: DX: PATIENT ADMITTED FOR COPD EXACERBATION ANTHROPOMETRICS: HT: 64", WT: 249#, BMI: 42.7 DIET: HEALTHY HEART RECOMMENDATIONS: 1. CONTINUE HEALTHY HEART DIET TO PROMOTE A STEADY WEIGHT LOSS TOWARDS A HEALTHY BMI OF 19-25 Respectfully, LOLIS EATON, MINDY, LD [employer] [facility] cc: client file
--- NOTE | ~2017-03-12 | US84 ---
[id number] [facility]. [facility] [address] [place], [place] [address] [id number] I MR#: [id number] Acc #: [id number] NAME: KENDELL SCHNEIDER : 1955 SEX: F STUDY DATE/TIME: 03/12/2017 22:58 UNIT: CEDOF ROOM: 09974 STUDY DESCRIPTION: US LE Veins Complete Ward Stdy Attending Physician: Leonides Wilson M.D. Ordering Physician: Ramirez Campbell D.O. MEDICAL IMAGING REPORT This report is preliminary unless electronic signature is present EXAM Bilateral leg vein Doppler, 03/12 22:58 INDICATION Bilateral leg swelling with pain in the ankles and calves for 1 week. TECHNIQUE Venous ultrasound examination of both lower extremities was performed using grayscale, spectral Doppler and color flow Doppler imaging. FINDINGS The examination is negative. There is no evidence of deep venous thrombus from the groin to the lower calf bilaterally. Visualized greater saphenous veins are also patent. IMPRESSION Negative examination. No evidence of bilateral lower extremity deep venous thrombosis. Dictated by... Jason Sanchez Jr., M.D. THIS IS AN ELECTRONICALLY VERIFIED REPORT Jason Sanchez Jr., M.D. at 03/16/2017 7:12 AM STARLA/sadiq TD: 03/13/2017 09:30 JOB #: [id number] MEDICAL IMAGING REPORT Page 1 of 1 COPY
--- NOTE | ~2017-03-12 | CT16 ---
[facility] A Service of [facility] RADIOLOGY TEXT RESULTS PATIENT: KENDELL SCHNEIDER LOCATION: [facility] : 53 UNIT #: [id number] AGE: [address]: Leonides Wilson MD SEX: F ORDER DR: [id number] [facility] [address] [place], [place] [address] [id number] I MR#: [id number] Acc #: [id number] NAME: KENDELL SCHNEIDER : 1955 SEX: F STUDY DATE/TIME: 03/13/2017 01:03 [facility] 25976 STUDY DESCRIPTION: CT Angio Chest for PE Attending Physician: Leonides Wilson M.D. Ordering Physician: Ramirez Campbell D.O. MEDICAL IMAGING REPORT This report is preliminary unless electronic signature is present EXAM Chest CTA, 03/13 at 01:03 INDICATION Shortness of air and heart palpitations today. Elevated D-dimer level today. COPD. TECHNIQUE Axial images were obtained through the chest following IV contrast administration. 3-D reformats were obtained. This CT exam was performed with one or more of the following radiation dose reduction techniques: automatic exposure control, adjustment of mA and/or kV according to patient size, and iterative reconstruction. COMPARISON 12/16/2016 FINDINGS There is no pulmonary embolism or aortic dissection. There is no pleural or pericardial effusion. There is no adenopathy. There is emphysema. There is some chronic scarring in the right lower lobe. Calcified granuloma noted in the lingula. Upper abdomen shows cholecystectomy. IMPRESSION 1. No PE or dissection. 2. No acute findings in the chest. 3. Emphysema with some chronic scarring in the right lower lobe. Dictated by... Jason Sanchez Jr., M.D. THIS IS AN ELECTRONICALLY VERIFIED REPORT [facility] A Service of [facility] RADIOLOGY TEXT RESULTS PATIENT: KENDELL SCHNEIDER LOCATION: [facility] : 53 UNIT #: [id number] AGE: [address]: Leonides Wilson MD SEX: F ORDER DR: Jason Sanchez Jr., M.D. at 03/16/2017 7:13 AM STARLA/sadiq TD: 03/13/2017 09:42 JOB #: [id number] MEDICAL IMAGING REPORT Page 1 of 1 COPY
--- NOTE | ~2017-03-12 | CR72 ---
[facility] A Service of [facility] & [facility] RADIOLOGY TEXT RESULTS PATIENT: KENDELL SCHNEIDER LOCATION: [facility] [address] : 54 UNIT #: [id number] AGE: [address]: Leonides Wilson MD SEX: F ORDER DR: [id number] [facility] [address] [place], [place] [address] [id number] I MR#: [id number] Acc #: [id number] NAME: KENDELL SCHNEIDER : 1955 SEX: F STUDY DATE/TIME: 03/12/2017 22:38 [facility] 29010 STUDY DESCRIPTION: CR Chest Single View Portable Attending Physician: Leonides Wilson M.D. Ordering Physician: Ramirez Campbell D.O. MEDICAL IMAGING REPORT This report is preliminary unless electronic signature is present EXAM Portable AP view of the chest. COMPARISON February 22, 2017, December 16, 2016 and November 30, 2016. INDICATIONS 62-year-old female with dyspnea and cardiac palpitations since yesterday. History of hypertension and COPD. FINDINGS Cardiomediastinal silhouette is within normal limits. Calcified granuloma in the left lower lobe. No evidence of pneumothorax, pleural effusion or acute airspace disease. IMPRESSION No acute radiographic abnormality. Normal heart size. Dictated by... Valente Valencia M.D. THIS IS AN ELECTRONICALLY VERIFIED REPORT Valente Valencia M.D. at 03/18/2017 9:15 AM BLM/dejuan TD: 03/13/2017 09:14 JOB #: [id number] MEDICAL IMAGING REPORT Page 1 of 1 COPY
--- NOTE | ~2017-03-12 | HP ---
Unit #: [id number] #: [id number] Patient: KENDELL SCHNEIDER [id number] [address] [place], [place] [address] [id number] I MR#: [id number] NAME: KENDELL SCHNEIDER ROOM: 220 Age: 62 Sex: F Admission Date: 03/13/2017 : 1955 Attending Physician: Leonides Wilson M.D. HISTORY AND PHYSICAL HISTORY OF PRESENT ILLNESS Ms. Schneider is a 62-year-old female with history of severe COPD and chronic respiratory failure who presents with increasing shortness of breath and wheezing. She was admitted to the hospital in November of this year with pneumonia. It cleared radiographically. She was noted to be anemic and workup was to be done as an outpatient. She was apparently readmitted with symptomatic anemia, found to be B12 deficient, iron deficient, and treated. She received two units of packed red blood cells, had no signs of bleeding, and occult stool was negative for blood. Her carbamazepine for trigeminal neuralgia had been stopped and she was then told to follow up with her neurologist. She was discharged on albuterol, Advair, Atrovent, triamcinolone cream, Flonase, clobetasol, gabapentin, Oxtellar, Cymbalta, loperamide, nystatin, Phenergan, Bentyl, BuSpar, metoprolol, docusate sodium, Imitrex, Bumex, pravastatin, hydralazine, Singulair, [place], Nexium, B12 1000 mg daily, iron sulfate 325 b.i.d. For some reason, she had not been using her Advair, but had been using Spiriva. Her breathing got worse with this. She had had no fever, chills, sweats, or chest pain. PAST MEDICAL HISTORY Severe COPD, reformed smoker, chronic respiratory failure maintained on 3 liters, hypertension, anxiety/depression, gastroesophageal reflux, Schatzki ring, status post dilation. Degenerative joint disease, chronic back pain, history of CHF revealing normal ejection fraction and no coronary artery disease apparently, history of trigeminal neuralgia. SURGERY Bilateral tubal ligation, right wrist surgery, umbilical hernia repair, right ear surgery, laparoscopic cholecystectomy. FAMILY HISTORY Heart disease. ALLERGIES None known. MEDICATIONS As noted above. REVIEW OF SYSTEMS Ten-point systems otherwise negative other than mentioned above. PHYSICAL EXAMINATION GENERAL APPEARANCE: White female, morbidly obese, no distress. Unit #: [id number] #: [id number] Patient: KENDELL SCHNEIDER VITAL SIGNS: Blood pressure is 140/80, pulse 70, respiratory rate 12, and afebrile. HEENT: Normocephalic and atraumatic. Pupils equal, round, and reactive. Sclerae nonicteric. Nasal passages patent. Posterior pharynx crowded. Mallampati IV. NECK: Thick, supple, trachea midline. LUNGS: Expiratory wheeze bilaterally. Diminished breath sounds. CARDIAC: Regular rate and rhythm. Could not appreciate murmur, rub, or gallop. ABDOMEN: Protuberant, nontender, bowel sounds present, no hepatosplenomegaly. EXTREMITIES: Without clubbing, cyanosis, or edema. NEUROLOGIC: Awake, alert, oriented x3. Cranial nerves intact. Muscle strength symmetric bilaterally. Affect calm. DIAGNOSTIC STUDIES Laboratory studies reviewed, as noted. IMAGING: Chest CT scan: No pulmonary embolus. No acute infiltrate or mass. No mediastinal lymphadenopathy. Chest x-ray: No acute process. Bilateral lower extremity venous Doppler study negative for DVT. Note she does have 2+ lower extremity edema. IMPRESSION 1. Chronic obstructive pulmonary disease exacerbation. 2. Acute on chronic respiratory failure. 3. Anemia, B12 and iron deficient. 4. Morbid obesity. 5. Probably obstructive sleep apnea. 6. Hypertension. 7. Hyperglycemia. 8. History of Schatzki ring. 9. Peripheral edema. PLAN Bronchodilators, parenteral steroids, cover with antibiotics, will need to use inhaled corticosteroids as an outpatient as not using this probably resulted in worsening symptoms. Sliding scale insulin, diuresis, outpatient evaluation of OC. Apparently, she had a study done in the past, which she had poor sleep efficiency. Further recommendations pending this. Dictated by Leonides Wilson M.D. Cathy TD: 03/14/2017 06:18 JOB #: [id number] Unit #: [id number] #: [id number] Patient: KENDELL SCHNEIDER HISTORY AND PHYSICAL Page 1 of 1 X Leonides Wilson MD HISTORY AND PHYSICAL
--- NOTE | ~2017-03-12 | DS ---
Unit #: [id number] #: [id number] Patient: KENDELL SCHNEIDER [id number] [address] [id number] MR#: [id number] NAME: KENDELL SCHNEIDER ROOM: 220 Age: 62 Sex: F Admission Date: 03/13/2017 : 1955 Discharge Date: 03/17/2017 Attending Physician: Leonides Wilson M.D. DISCHARGE SUMMARY DISCHARGE DIAGNOSES 1. Acute and chronic hypoxemic respiratory failure. 2. Chronic obstructive pulmonary disease exacerbation. 3. Hypokalemia. 4. Anemia, stable. 5. Probable obstructive sleep apnea. 6. Hypertension. 7. Mild hyperglycemia. DISCHARGE MEDICATIONS 1. Albuterol sulfate, 2 puffs every 4 hours as needed or via nebulizer. 2. Advair 250/50, 1 inhalation twice daily. 3. Atrovent inhaler, 2 puffs q.i.d. 4. Triamcinolone cream to legs. 5. Prednisone 40 mg for 4 days, decreased by 10 mg every 4 days till off. 6. Flonase, 2 sniffs each nostril daily. 7. Clobetasol topically as needed. 8. Carbatrol 200 mg b.i.d. 9. Neurontin 800 mg q.i.d. 10. Oxcarbazepine 600 mg b.i.d. 11. Cymbalta 30 mg daily. 12. Loperamide 2 mg p.o. p.r.n. diarrhea. 13. Phenergan 25 p.o. t.i.d. as needed. 14. Bentyl 20 mg t.i.d. 15. BuSpar 5 mg b.i.d. 16. Norvasc 5 mg daily. 17. Metoprolol 25 mg daily. 18. Colace, 1 at bedtime. 19. Imitrex 25 daily as needed for headache. 20. Lasix 40 mg p.o. daily. 21. Pravastatin 40 mg daily. 22. Hydralazine 25 mg t.i.d. 23. Singulair 10 mg daily. 24. Hydrocodone/APAP 10/325 q.i.d. as needed. 25. Nexium 40 mg daily. Follow up my office 2-3 weeks. She is to continue her home oxygen, I believe at 3 or 4 L. She needs to be re-evaluated for obstructive sleep apnea. HOSPITAL COURSE Patient was admitted with exacerbation of COPD and acute and chronic respiratory failure. She had not been using her Advair at home. She had Unit #: [id number] #: [id number] Patient: KENDELL SCHNEIDER only been using albuterol and I believe Spiriva or Atrovent. Her chest x-ray was clear. Please refer to H and P. She was treated with inhaled bronchodilators, IV Solu-Medrol, covered with sliding scale (1) , placed on DVT prophylaxis with improvement. Her blood sugars prior to discharge are 187, 127 and 127. She will be seen in the office in 2-3 weeks. She will need outpatient evaluation for obstructive sleep apnea. Dictated by... Leonides Wilson M.D. RAYMOND/rupert TD: 03/19/2017 06:52 JOB #: [id number] DISCHARGE SUMMARY Page 1 of 1 X Leonides Wilson MD X DISCHARGE SUMMARY
[2017-03-12 22:49] LABS: BASOPHIL% 0.4 % (0-2.5); EOSINOPHIL% 0.4 % (0.0-7.0); HEMATOCRIT 31.8 % (35.0-45.0); HEMOGLOBIN 10.5 gm/dL (12.0-16.0); LYMPHOCYTE# 0.7 X10e3 (1.0-3.5); LYMPHOCYTE% 8.4 % (17.0-45.0); MEAN CELL VOLUME 89.9 FL (83-96); MEAN CORPUSCULAR HEMOGLOBIN 29.6 PG (28-34); MEAN CORPUSCULAR HGB CONC 32.9 g/dL (30-36); MEAN PLATELET VOLUME 9.3 FL (6.5-11.5); MONOCYTE# 0.3 X10e3 (0-1.0); MONOCYTE% 3.1 % (3.0-12.0); NEUTROPHIL# 7.8 X10e3 (1.5-7.1); NEUTROPHIL% 87.7 % (40-75); PLATELET COUNT 204 X10e3 (140-420); RED BLOOD COUNT 3.54 X10e (3.90-5.30); RED CELL DISTRIBUTION WIDTH 16.9 % (11.0-15.5); WHITE BLOOD COUNT 8.9 X10e3 (4.0-10.5)
[2017-03-12 22:54] LABS: POC - CKMB 1.3 ng/mL (0.0-7.9); POC - TROPONIN <0.05 ng/mL (<=0.05)
[2017-03-12 22:57] LABS: DIFF IND NO
[2017-03-12 23:04] LABS: PARTIAL THROMBOPLASTIN TIME 23.2 SECONDS (23.5-31.3); PROTHROMBIN TIME (PATIENT) 10.6 SECONDS (10.0-11.7)
[2017-03-12 23:11] LABS: ALBUMIN SERUM 3.8 g/dL (3.5-5.0); BILIRUBIN, DIRECT 0.1 mg/dL (0.0-0.2); BILIRUBIN,INDIRECT 0.6 mg/dL (0.0-0.9); BILIRUBIN,TOTAL 0.7 mg/dL (0.2-2.0); BUN/CREATININE RATIO 21.25; CALCIUM SERUM 8.6 mg/dL (8.4-10.2); CREATININE SERUM 0.8 mg/dL (0.6-1.4); GLOM FILT RATE Estimated 78.5 mL/min (>60); POTASSIUM 3.6 mmol/L (3.5-5.1); PROTEIN TOTAL SERUM 7.1 g/dL (6.0-8.3)
[2017-03-13 00:54] LABS: POC - CKMB 1.1 ng/mL (0.0-7.9); POC - TROPONIN <0.05 ng/mL (<=0.05)
[2017-03-13] MEDS ORDERED: METOPROLOL SUCC25 MG PO (02:13)
[2017-03-13] MEDS ORDERED: NEXIUM PO (02:14)
[2017-03-13] MEDS ORDERED: PRAVASTATIN SOD40 MG PO (02:14)
[2017-03-13] MEDS ORDERED: HYDRALAZINE HCL25 MG PO (02:15)
[2017-03-13] MEDS ORDERED: BUMEX2 MG PO (02:15)
[2017-03-13] MEDS ORDERED: BENTYL20 MG PO (02:16)
[2017-03-13] MEDS ORDERED: AMLODIPINE BESYL5 MG PO (02:16)
[2017-03-13] MEDS ORDERED: OXCARBAZEPINE150 MG PO (02:16)
[2017-03-13] MEDS ORDERED: CYMBALTA30 MG PO (02:16)
[2017-03-13] MEDS ORDERED: IMITREX25 MG PO (02:17)
[2017-03-13] MEDS ORDERED: CARBATROL200 MG PO (02:17)
[2017-03-13] MEDS ORDERED: PHENERGAN PO (02:18)
[2017-03-13] MEDS ORDERED: DOCUSATE SODIU100 MG PO (02:18)
[2017-03-13] MEDS ORDERED: ANTI-DIARRHEAL2 M1 PO (02:19)
[2017-03-13] MEDS ORDERED: FLONASE 0.05% N16 G1 (02:20)
[2017-03-13] MEDS ORDERED: ALBUTEROL2.5 MG/3 M INH (02:20)
[2017-03-13] MEDS ORDERED: ADVAIR 500-501 EACH INH (02:21)
[2017-03-13] MEDS ORDERED: ALBUTEROL17 GM INH (02:21)
[2017-03-13] MEDS ORDERED: ATROVENT HFA12.9 G1 INH (02:21)
[2017-03-13] MEDS ORDERED: CLOBETASOL PROP15 G1 TOP (02:23)
[2017-03-13] MEDS ORDERED: NILSTAT PO (02:23)
[2017-03-13] MEDS ORDERED: HYDROCODON-ACE1 EAC5 PO (02:24)
[2017-03-13] MEDS ORDERED: TRIAMCINOLONE A15 G2 EXT (02:24)
[2017-03-13] MEDS ORDERED: NEURONTIN800 MG PO (02:25)
[2017-03-13] MEDS ORDERED: BUSPAR5 M1 PO (02:25)
[2017-03-13] MEDS ORDERED: MONTELUKAST SOD10 MG PO (02:25)
[2017-03-13 07:52] LABS: BASOPHIL% 0.1 % (0-2.5); HEMATOCRIT 31.5 % (35.0-45.0); HEMOGLOBIN 10.1 gm/dL (12.0-16.0); LYMPHOCYTE# 0.7 X10e3 (1.0-3.5); LYMPHOCYTE% 7.7 % (17.0-45.0); MEAN CELL VOLUME 89.4 FL (83-96); MEAN CORPUSCULAR HEMOGLOBIN 28.6 PG (28-34); MEAN PLATELET VOLUME 9.7 FL (6.5-11.5); MONOCYTE# 0.1 X10e3 (0-1.0); MONOCYTE% 0.9 % (3.0-12.0); NEUTROPHIL# 8.6 X10e3 (1.5-7.1); NEUTROPHIL% 91.3 % (40-75); PLATELET COUNT 217 X10e3 (140-420); RED BLOOD COUNT 3.52 X10e (3.90-5.30); RED CELL DISTRIBUTION WIDTH 16.9 % (11.0-15.5); WHITE BLOOD COUNT 9.5 X10e3 (4.0-10.5)
[2017-03-13 07:54] LABS: DIFF IND NO
[2017-03-13 08:47] LABS: BUN/CREATININE RATIO 22.85; CALCIUM SERUM 8.4 mg/dL (8.4-10.2); CREATININE SERUM 0.7 mg/dL (0.6-1.4); GLOM FILT RATE Estimated 92.2 mL/min (>60); POTASSIUM 3.9 mmol/L (3.5-5.1)
[2017-03-14 05:22] LABS: HEMATOCRIT 32.3 % (35.0-45.0); HEMOGLOBIN 10.6 gm/dL (12.0-16.0); MEAN CELL VOLUME 88.6 FL (83-96); MEAN CORPUSCULAR HEMOGLOBIN 29.1 PG (28-34); MEAN CORPUSCULAR HGB CONC 32.9 g/dL (30-36); MEAN PLATELET VOLUME 10.1 FL (6.5-11.5); RED BLOOD COUNT 3.64 X10e (3.90-5.30); WHITE BLOOD COUNT 12.1 X10e3 (4.0-10.5)
[2017-03-14 05:49] LABS: BUN/CREATININE RATIO 27.5; CALCIUM SERUM 8.9 mg/dL (8.4-10.2); CREATININE SERUM 0.8 mg/dL (0.6-1.4); GLOM FILT RATE Estimated 78.5 mL/min (>60); POTASSIUM 3.2 mmol/L (3.5-5.1)
[2017-03-15 07:20] LABS: BUN/CREATININE RATIO 33.75; CALCIUM SERUM 8.9 mg/dL (8.4-10.2); CREATININE SERUM 0.8 mg/dL (0.6-1.4); GLOM FILT RATE Estimated 78.5 mL/min (>60); POTASSIUM 3.9 mmol/L (3.5-5.1)
[2017-03-16 08:47] LABS: BUN/CREATININE RATIO 33.75; CALCIUM SERUM 8.9 mg/dL (8.4-10.2); CREATININE SERUM 0.8 mg/dL (0.6-1.4); GLOM FILT RATE Estimated 78.5 mL/min (>60); POTASSIUM 4.1 mmol/L (3.5-5.1)
[2017-03-17 06:34] LABS: CALCIUM SERUM 8.6 mg/dL (8.4-10.2); CREATININE SERUM 0.8 mg/dL (0.6-1.4); GLOM FILT RATE Estimated 78.5 mL/min (>60)
[2017-03-17] MEDS ORDERED: LASIX PO (13:16)
[2017-03-17] MEDS ORDERED: PREDNISONE PO (13:17)
[2017-03-17] MEDS ORDERED: ADVAIR 250-501 EAC1 INH (14:05)
== END 2017-03-17 15:00 | disposition home or self-care (01) | DRG 189 ==
LOC: CED 20:13 → C2A 03-13 03:05 → CEDOF 03-13 03:05 → CED 03-13 03:18 → CEDOF 03-13 03:18 → C2A 03-13 11:13 → CEDOF 03-13 11:13 → C2A 03-17 15:00
PROVIDERS: Emergency Medicine; Internal Medicine
DX: J96.21 Acute and chronic respiratory failure with hypoxia (principal); J44.1 Chronic obstructive pulmonary disease with (acute) exacerbation; I10 Essential (primary) hypertension; E87.6 Hypokalemia; G47.33 Obstructive sleep apnea (adult) (pediatric); R73.9 Hyperglycemia, unspecified; D51.9 Vitamin B12 deficiency anemia, unspecified; D50.9 Iron deficiency anemia, unspecified; Z87.891 Personal history of nicotine dependence; F41.9 Anxiety disorder, unspecified; F32.9 Major depressive disorder, single episode, unspecified; K21.9 Gastro-esophageal reflux disease without esophagitis; E66.01 Morbid (severe) obesity due to excess calories; Z90.49 Acquired absence of other specified parts of digestive tract
CPT/HCPCS: 36415; 71010; 71275; 80048; 80076; 82553; 82947; 83880; 84484; 85025; 85027; 85379; 85610; 85730; 93005; 93970; 94640; 94664; 94760; 96374; 99285; J1650; J1815; J2920; J2930; Q9967